=== PATIENT | female | born 1945 | race Caucasian/White ===

== ENCOUNTER 2017-06-06 09:40 | Day surgery (SDC) | payer MEDICARE, MEDICAID ==
[2017-06-05 16:59] VITALS: BMI 24.5
[2017-06-06] MEDS ORDERED: Fentanyl 100 MCG/2 ML VIAL ONE (11:37)
[2017-06-06] MEDS ORDERED: Midazolam HCl 2 mg/2 ml Vial ONE (11:37)
[2017-06-06] MEDS ORDERED: Bupivacaine/Epinephrine 0.25% 30 ML VIAL ONE (11:51)
[2017-06-06] MEDS ORDERED: Clindamycin/D5W 900 mg/50 ml Premix Bag ONE (12:45)
[2017-06-06] MEDS ORDERED: Levofloxacin 500 mg/D5W 100 ml Premix Bag ONE (12:45)
[2017-06-06] MEDS ORDERED: PHENYLEPHRINE-NS 100 MCG/ML 10 ML SYRINGE ONE (13:02)
[2017-06-06] MEDS ORDERED: Ondansetron HCl/PF 4 MG/2 ML Vial ONE (13:02)
[2017-06-06] MEDS ORDERED: diphenhydrAMINE HCl 50 MG/ML 1 ML VIAL ONE (13:02)
[2017-06-06] MEDS ORDERED: Propofol 200 MG/20 ML VIAL ONE (13:02)
[2017-06-06] MEDS ORDERED: Lidocaine 1% PF 5 ML VIAL ONE (13:02)
--- NOTE | 2017-06-06 16:12 | RAD ---
RADIOGRAPH CHEST 1 VIEW: Date: 06-06-17 Time: 2:17 p.m. HISTORY: 72-year-old female status post Mediport placement. COMPARISON: 04-18-17 FINDINGS: There is a new left subclavian vascular access port with distal tip overlying the SVC. No evidence o f pneumothorax. The previously demonstrated right upper lobe opacity has become smaller and more jerardo nt. Cardiomediastinal silhouette remains within normal limits. The rest of the visualized lung field s remain grossly clear. Lateral costophrenic angles remain sharp. IMPRESSION: 1. Interval placement of left subclavian implantable vascular access port without pneumothorax. 2. Significant interval decrease in size and density of right upper lobe pulmonary lesion. VIVIANA POS: [facility]
--- NOTE | 2017-06-08 17:14 | PDOC.OP ---
Operative Note - Operative Note Operative Note: PROCEDURE: Left subclavian MediPort placement with fluoroscopic guidance SURGEON: Eliseo Deluca M.D. DATE OF PROCEDURE: 06/06/2017 PREOPERATIVE DIAGNOSIS: Adenocarcinoma of the lung POSTOPERATIVE DIAGNOSIS: Adenocarcinoma of the lung HISTORY: Patient is diagnosed with bronchogenic carcinoma of the lung involving the right apex. Chemotherapy has been recommended and the oncologist has requested MediPort placement for this. Due to the radiation ngo placement of the port in the left chest was requested. OPERATIVE PROCEDURE IN DETAIL: After informed consent was obtained and appropriate preoperative antibiotics were administered, the patient was taken to the operating room and placed in supine position and monitored anesthesia care was administered. The patient was then placed in Trendelenburg position and the subclavian vein accessed easily on the first attempt with excellent flow of dark venous non-pulsatile blood. A wire threaded easily and was confirmed to be in the superior vena cava by fluoroscopy. Additional local anesthesia was infused to the skin and subcutaneous tissues lateral and inferior to the access site. The skin incision was extended from the wire laterally and a subcutaneous pocket developed inferiorly. A Mediport was obtained and confirmed to fit in the subcutaneous pocket. This was secured inferiorly to the pectoralis fascia with a Prolene suture, which was clamped, but not tied. The dilator and sheath were then placed over the wire and the dilator and wire removed leaving the sheath in place. The clamped MediPort tubing was tunneled through the sheath, which was then split and removed leaving the MediPort tubing in place. The tubing was adjusted until the tip was confirmed by fluoroscopy to be in the superior vena cava just above the atrium. The tubing was clamped at the skin level and cut and the tubing secured to the port, which was then placed in the subcutaneous pocket. The previously placed suture was secured and two additional sutures were placed to fix the port in place within the pocket. The port was aspirated with the Duran needle and had excellent flow of dark venous non-pulsatile blood and easily flushed without resistance. The subcutaneous tissues were closed with a running Monocryl suture, following which the skin was closed with a running subcuticular Monocryl suture. Dermabond dressings were placed and the hub was again accessed through the skin and confirmed to easily aspirate and easily flush. The course of the catheter was confirmed by fluoroscopy to be smooth with the tip appropriately located in the superior vena cava. The patient was taken her back to the day stay unit in good condition. Estimated blood loss was minimal. There were no complications. There were no specimens.
== END 2017-06-06 15:07 | disposition home or self-care (01) ==
LOC: SDC 09:40
PROVIDERS: ATTEND Surgery
PROC: 05H633Z Insertion of Infusion Device into Left Subclavian Vein, Percutaneous Approach (ICD-10-PCS; principal; 2017-06-06)
PROC: B517ZZA Fluoroscopy of Left Subclavian Vein, Guidance (ICD-10-PCS; 2017-06-06)
DX: C34.91 Malignant neoplasm of unspecified part of right bronchus or lung (principal); I10 Essential (primary) hypertension; F17.210 Nicotine dependence, cigarettes, uncomplicated; Z88.1 Allergy status to other antibiotic agents; Z88.0 Allergy status to penicillin; Z79.82 Long term (current) use of aspirin; Z79.899 Other long term (current) drug therapy; Z98.890 Other specified postprocedural states; Z98.891 History of uterine scar from previous surgery; Z83.3 Family history of diabetes mellitus; Z82.49 Family history of ischemic heart disease and other diseases of the circulatory system; Z80.0 Family history of malignant neoplasm of digestive organs
CPT/HCPCS: 36561; 71010; C1788; J1200; J1642; J1956; J2001; J2250; J2405; J2704; J3010; J3490

== ENCOUNTER 2017-06-18 18:42 | Inpatient (IN) | payer MEDICARE, MEDICAID ==
[2017-06-18] MEDS ORDERED: Ondansetron ODT 4 MG TAB ONE (19:01)
--- NOTE | 2017-06-18 20:03 | RAD ---
UPRIGHT PORTABLE CHEST ONE VIEW: History: 72-year-old female with weakness and nausea for several days. History of lung cancer. On chemotherap y. Comparison: 06-06-17 FINDINGS: Left subclavian catheter and injection port. Minimal somewhat poorly defined parenchymal density in the right upper lobe somewhat less prominent than on the 06-06-17 study. No confluent pneumonia, ove rt edema, or other acute intrathoracic disease. Heart size is normal. IMPRESSION: Minimal parenchymal process in the right upper lobe with some minimal associated volume loss, overal l less prominent in size than on the prior study. No confluent pneumonia, overt edema, or other acut e intrathoracic disease. POS: [facility]
[2017-06-18 20:38] LABS: Lactic Acid - Sepsis 1.9 mmol/L (0.5-2.2)
[2017-06-18 20:41] LABS: #Lymphocytes 0.1 thou/uL (1.20-3.40); #Neutrophils 0.9 thou/uL (1.40-6.50); %Eosinophils 0.6 % (0.0-10.0); %Lymphocytes 13.1 % (21.0-51.0); %Monocytes 1.1 % (0.0-10.0); Anisocytosis SLIGHT = 6-15 cells (100X) (0-5/hpf); Mean Platelet Volume 7.9 fL (7.4-10.4); Red Blood Cell (RBC) Count 3.18 mill/uL (4.20-5.40); White Blood Cell (WBC) Count 1.1 thou/uL (4.8-10.8)
[2017-06-18 20:44] LABS: ALT (SGPT) 22 U/L (8-55); AST (SGOT) 27 U/L (5-34); Alkaline Phosphatase 90 U/L (40-150); Anion Gap 19 mmol/L (10-20); BUN (Urea Nitrogen) 21 mg/dL (9.8-20.1); Bilirubin, Total 0.7 mg/dL (0.2-1.2); CK (CPK) 71 U/L (29-168); Calc. Creatinine Clearance 0 mL/min (70-130); Calcium 6.7 mg/dL (7.8-10.44); Carbon Dioxide 20 mmol/L (23-31); Chloride 103 mmol/L (98-107); Estimated GFR-MDRD 46; Globulin 2.8 g/dL (2.4-3.5); Lipase 31 U/L (8-78); Protein, Total 6.6 g/dL (6.0-8.3)
[2017-06-18 20:47] LABS: Troponin I Less than 0.010 ng/mL (< 0.028)
[2017-06-18 21:06] LABS: Bilirubin Small (Negative); Blood, Urine Negative (Negative); Glucose, Urine (Dipstick) Negative (Negative); Ketone, Urine Trace mg/dL (Negative); Nitrite Negative (Negative); Protein, Urine (Dipstick) 30 mg/dL (Neg-Trace)
[2017-06-18 21:08] LABS: Bacteria/HPF None Seen HPF (None Seen); Hyaline Casts/LPF 7-10 HYALINE CAST LPF (0-3 Hyaline)
[2017-06-18] MEDS ORDERED: Magnesium 2 GM/NS 0.9% 50 ML 2 GM in Premix Bag 1 BAG IVPB SCH (21:45)
[2017-06-19] MEDS ORDERED: Ondansetron HCl/PF 4 MG/2 ML Vial IVP PRN ×2 (01:22→07:08)
[2017-06-19] MEDS ORDERED: Ondansetron ODT 4 MG TAB SL PRN (01:22)
[2017-06-19 01:47] VITALS: BMI 24.0
[2017-06-19] MEDS: Sodium Chloride 0.9% 1,000 ML IV SCH ×5 (02:33→23:59)
[2017-06-19] MEDS ORDERED: HYDROcodone/Acetaminophen 5/325 mg Tablet PO PRN (07:08)
[2017-06-19] MEDS ORDERED: Acetaminophen 325 MG TAB PO PRN (07:08)
[2017-06-19] MEDS ORDERED: Mag-Al 1200 mg/1200 mg/30 ML UDCUP PO PRN (07:08)
[2017-06-19] MEDS ORDERED: Atorvastatin Calcium 40 MG TAB PO SCH (09:00)
[2017-06-19] MEDS: Famotidine/PF 20 mg/2ml Vial SLOW IVP SCH ×2 (09:46→20:29)
[2017-06-19] MEDS: ALPRAZolam 0.5 MG TAB PO SCH ×2 (09:46→20:31)
[2017-06-19] MEDS: Atorvastatin Calcium 40 MG TAB PO SCH (09:46)
[2017-06-19] MEDS: Bupropion 150 MG XL TAB PO SCH ×2 (09:46→20:31)
[2017-06-19] MEDS ORDERED: Vancomycin HCl 1 GM in Premix Bag 1 BAG IVPB SCH (11:00)
[2017-06-19] MEDS ORDERED: Magnesium Sulfate 4 GM, Admixture Fee 1 EACH in Sodium Chloride 0.9% 250 ML 250 ML IVPB SCH (13:45)
[2017-06-19] MEDS: metroNIDAZOLE 500 MG in Premix Bag 1 BAG IVPB SCH ×2 (14:04→21:15)
--- NOTE | 2017-06-19 14:23 | HP ---
PRIMARY CARE PHYSICIAN: Alon Cid D.O. REASON FOR ADMISSION: Sepsis, pancytopenia, gastroenteritis, dehydration. HISTORY OF PRESENT ILLNESS: A 72-year-old female who has underlying history of lung cancer. She is getting chemo and radiation therapy through [facility]. Patient reports that she had six cycles of chemotherapy this week and she is getting radiation therapy 5 times weekly for last 5 weeks. After last chemotherapy, patient was becoming more weak. She was having nausea, vomiting, and diarrhea. She was also having chills at home. She was becoming more and more weak. She denies any cough. She denies any chest pain, palpitations or urinary tract infection. She was not able to hold oral intake and that is why she decided to come to the emergency room for evaluation. The patient does report crampy abdominal discomfort. She recent any recent travel or sick exposure. She does report of nasal discharge, but she denies any cough or sore throat. Patient was evaluated in the emergency room and she found with urinary tract infection. The patient also had dehydration and abnormal electrolytes. Patient was very weak and that is why she was admitted to telemetry floor. REVIEW OF SYSTEMS: The following complete review of systems was negative, unless otherwise mentioned in the HPI or below: Constitutional: Weight loss or gain, ability to conduct usual activities. Skin: Rash, itching. Eyes: Double vision, pain. ENT/Mouth: Nose bleeding, neck stiffness, pain, tenderness. Cardiovascular: Palpitations, dyspnea on exertion, orthopnea. Respiratory: Shortness of breath, wheezing, cough, hemoptysis, fever or night sweats. Gastrointestinal: Poor appetite, abdominal pain, heartburn, nausea, vomiting, constipation, or diarrhea. Genitourinary: Urgency, frequency, dysuria, nocturia. Musculoskeletal: Pain, swelling. Neurologic/Psychiatric: Anxiety, depression. Allergy/Immunologic: Skin rash, bleeding tendency. Please see my HPI for pertinent positive and negative. All other review of systems reviewed and negative except as mentioned in the HPI. 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 PAST PSYCHIATRIC HISTORY: Anxiety and depression. PAST SURGICAL HISTORY: , D\T\C, excision of sebaceous cyst, MediPort placement. SOCIAL HISTORY: Patient lives with family, denies current tobacco, alcohol or drug abuse. ALLERGIES: The patient is allergic to HYDRALAZINE causing drug-induced lupus. The patient also developed generalized rash after ROCEPHIN. FAMILY HISTORY: Diabetes and heart disease runs among several family members. EMERGENCY ROOM COURSE: Patient is given 3 liters of IV fluid, Levaquin 750 mg, vancomycin 1 g, magnesium sulfate 2 grams and Zofran 4 mg. CURRENT HOME MEDICATIONS: Xanax 0.5 mg p.o. b.i.d., aspirin 81 mg p.o. daily, Lipitor 40 mg p.o. daily, Wellbutrin-XL 150 mg p.o. b.i.d., Lomotil q.i.d. p.r.n., lisinopril 10 mg p.o. daily, metoprolol 50 mg twice daily, Protonix 40 mg p.o. daily, Phenergan 12.5 mg q.4 hourly p.r.n., prochlorperazine 10 mg q.6 hourly p.r.n., tramadol 50 mg q.4 hourly p.r.n., Anoro Ellipta one inhalation daily, verapamil ER 120 mg p.o. b.i.d. PHYSICAL EXAMINATION: VITAL SIGNS: On arrival, blood pressure 121/79, pulse 98, respiratory rate 20, temperature 97.6, saturation 100% on room air, weight 59 kilograms. GENERAL: Patient is currently alert, awake, appears weak. No obvious acute distress. HEAD: Normocephalic, atraumatic. EYES: Pupils round, reactive to light. Extraocular muscles intact. ENT: Dry mucous membranes, no oral lesions, no pharyngeal erythema, no exudates. NECK: Supple. Range of motion is normal. No meningeal signs of irritation. LUNGS: Clear to auscultation without any obvious rhonchi or rales. CARDIAC: S1, S2 regular, tachycardia, no murmur, no gallop, no rub. ABDOMEN: Soft, bowel sounds present, nontender, nondistended. No organomegaly , no mass, no suprapubic tenderness. No peritoneal sign. BACK: On examination, no CVA tenderness. EXTREMITIES: Upper extremity passive movements of all joints are normal. Lower extremity, no edema. Good peripheral pulsation. SKIN: No skin rash. HEMATOLOGICAL SYSTEM: No lymphadenopathy. PSYCHIATRIC: Normal affect. IMAGING AND SIGNIFICANT LABORATORY DATA: 1. EKG showing normal sinus rhythm without any ischemic changes. Chest x-ray based on my review, minimal parenchymal process in the right upper lobe, no pneumonia. 2. CBC: WBC 1.1, hemoglobin 10.2, and platelet 116. 3. BMP: Sodium 138, potassium 4.2, chloride 103, carbon dioxide 20, BUN 21, creatinine 1.16, glucose 130, calcium 6.7, magnesium 1.0, lactic acid 1.9. 4. LFT: AST 27, ALT 22, alkaline phosphatase 90, albumin 3.8, lipase 31, CK 71 , CK-MB 0.7, troponin I less than 0.010. Urinalysis suggestive of UTI. ASSESSMENT AND PLAN: 1. Sepsis. This patient has underlying gastroenteritis and urinary tract infection. She is tachycardic and she has pancytopenia. The patient is already on broad broad-spectrum antibiotic therapy with Levaquin, Flagyl, and vancomycin. 2. Gastroenteritis, presumed infection. Patient is on Levaquin and Flagyl and we will send stool for infection workup to rule out any specific infectious etiology. We will send ova and parasite, Campylobacter antigen, culture and Clostridium difficile. 3. Urinary tract infection. We will send urine culture and patient is on Levaquin as well as vancomycin. We will follow up on culture result. 4. Dehydration. Patient is clinically dehydrated. The patient has received IV fluid in the emergency room. We will continue normal saline at 150 mL per hour and will repeat basic metabolic panel tomorrow. 5. Hypomagnesemia. The patient has received 2 grams magnesium in the emergency room. We will give her another dose of 4 gram magnesium and we will repeat magnesium tomorrow. 6. Sinus tachycardia likely due to underlying sepsis and volume depletion. 7. Hypocalcemia. Patient will be given calcium carbonate 1 gram p.o. b.i.d. and we will repeat basic metabolic panel tomorrow. 8. Pancytopenia, likely due to chemotherapy and underlying sepsis. We will monitor CBC. We will provide neutropenic precautions. 9. Dyslipidemia. We will continue Lipitor 40 mg p.o. at bedtime. 10. Anxiety and depression. We will continue bupropion 150 mg p.o. b.i.d., Xanax 0.5 mg p.o. b.i.d. 11. History of hypertension. We will start only 1 blood pressure medication with metoprolol 50 mg p.o. b.i.d. 12. Gastroesophageal reflux disease. We will continue Pepcid 20 mg IV b.i.d. 13. Lung cancer. We will consult Dr. Hughes for evaluation. The patient is getting radiation therapy, so we will defer that part of treatment plan to Oncology. 14. Deep venous thrombosis prophylaxis. We will avoid heparin products because of low platelet count. 15. Gastrointestinal prophylaxis. Patient is already on Pepcid therapy. 16. Code status: The patient is FULL CODE. The patient's daughter is surrogate decision maker. Disposition plan based on clinical course. We are expecting patient's stay in hospital more than 2 midnights. Plan of care discussed with the patient in detail. As this patient no longer needs any telemetry floor and that is why we will consider transferring her to medical floor. ERIKD
[2017-06-19] MEDS ORDERED: Vancomycin HCl 500 MG, Admixture Fee 1 EACH in Sodium Chloride 0.9% 100 ML IVPB SCH (15:00)
[2017-06-19] MEDS: Ondansetron ODT 4 MG TAB PO PRN (16:13)
--- NOTE | 2017-06-19 18:38 | CON ---
DATE OF CONSULTATION: 06/19/2017 REASON FOR CONSULTATION: Lung cancer. HISTORY OF PRESENT ILLNESS: Ms. Shell is a 72-year-old woman who was diagnosed with stage III B poorly differentiated adenocarcinoma of the lung. She is undergoing concurrent chemoradiation. Her chemotherapy consists of weekly carboplatin and Taxol. Her last treatment was 08/15/2016. She has been struggling with diarrhea and esophagitis as the esophagus in the radiation field. She presented to the emergency room yesterday with intractable nausea, vomiting, and diarrhea. She was found to be dehydrated. She was pancultured and preliminary results are all negative. She has received IV fluids in the last 24 hours and is feeling substantially better. She denies any chest pain or shortness of breath, mild abdominal pain in the lower umbilicus region. PAST MEDICAL HISTORY: 1. Lung cancer 2. Chronic alcoholism. 3. Hypertension. 4. Hyperlipidemia. 5. Arthritis. 6. Asthma. 7. Anxiety and depression. 8. Gastroesophageal reflux disease. 9. Chronic obstructive pulmonary disease. 10. History of cerebrovascular accident. 11. Kidney disease. PAST SURGICAL HISTORY: 1. x2. 2. Biopsy of the right lung nodule. FAMILY HISTORY: Mother had bone cancer. Father had colon cancer. SOCIAL HISTORY: , has 2 children, lives alone. She is a former alcohol use, discontinued in 09/2016, currently continues to smoke. REVIEW OF SYSTEMS: A 10 point review of systems is negative except for noted in HPI. PHYSICAL EXAMINATION: VITAL SIGNS: Temperature is 97.6, pulse is 106, respiratory rate 18, BP is 139/ 64. She is 100% on room air. GENERAL: Well-developed, well-nourished female, in no acute distress. HEENT: Normocephalic, atraumatic. Pupils are equal and reactive to light. NECK: Supple without JVD. CARDIOVASCULAR: Regular rate and rhythm. LUNGS: Clear. ABDOMEN: Soft, nontender, bowel sounds are positive. EXTREMITIES: No clubbing, cyanosis or edema. SKIN: No rash. HEMATOLOGIC: No petechia or purpura. NEUROLOGIC: The patient has a chronic tremor. PSYCHIATRIC: The patient is alert and oriented and appropriate. PERTINENT LABORATORY AND X-RAYS: Current WBCs are 1.1, hemoglobin 10.2, hematocrit 30, platelet count is 116,000. She has got 85% neutrophils, 13% lymphocytes. Sodium is 138, potassium 4.2, chloride 103, CO2 is 20, BUN is 21, creatinine 1.16. Lactic acid 1.9, calcium 6.7, magnesium 1, total bilirubin is 0.7, AST is 27, ALT is 22, alkaline phosphatase is 90. Creatinine kinase is 71. Troponins negative. Serum total protein 6.6, albumin 3.8, globulin 2.8. Urine is negative for bacteria. Chest x-ray showed a right upper lobe changes consistent with radiation. ASSESSMENT AND PLAN: 1. Stage III B lung cancer. 2. Pancytopenia secondary to #1. 3. Dehydration. 4. 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 PLAN: We will continue the intravenous fluids for now and add Ensure to her diet t.i.d. She is already on Pepcid, but continue empiric antibiotics; however , may be able to discontinue some as her cultures have been negative. We will continue to provide supportive care; and hopefully, she will be able to go home in the next 24 hours to resume radiation. She has 8 radiation treatments left with one chemotherapy. Thank you for the consult. We will follow her closely. ANDIE
[2017-06-19] MEDS: Metoprolol Tartrate 50 MG TAB PO SCH (20:31)
[2017-06-19] MEDS: Calcium Carbonate 500 MG ChewTAB PO SCH (20:32)
[2017-06-20] MEDS: metroNIDAZOLE 500 MG in Premix Bag 1 BAG IVPB SCH ×3 (05:06→21:30)
[2017-06-20 05:13] LABS: White Blood Cell (WBC) Count 0.6 thou/uL (4.8-10.8)
[2017-06-20 05:17] LABS: ALT (SGPT) 14 U/L (8-55); AST (SGOT) 17 U/L (5-34); Alkaline Phosphatase 68 U/L (40-150); Anion Gap 9 mmol/L (10-20); BUN (Urea Nitrogen) 8 mg/dL (9.8-20.1); Bilirubin, Total 0.5 mg/dL (0.2-1.2); Calc. Creatinine Clearance 63 mL/min (70-130); Calcium 6.7 mg/dL (7.8-10.44); Carbon Dioxide 19 mmol/L (23-31); Chloride 115 mmol/L (98-107); Estimated GFR-MDRD 73; Globulin 2.2 g/dL (2.4-3.5); Magnesium 1.9 mg/dL (1.6-2.6); Phosphorus 2.9 mg/dL (2.3-4.7)
[2017-06-20 05:47] LABS: Band 2 % (5-11); Hematocrit 21.7 % (36.0-47.0); Mean Platelet Volume 7.6 fL (7.4-10.4); Neutrophil 72 % (42-75); Nucleated RBC 1 % (0)
[2017-06-20] MEDS: Sodium Chloride 0.9% 1,000 ML IV SCH ×3 (07:44→21:31)
[2017-06-20] MEDS: ALPRAZolam 0.5 MG TAB PO SCH ×2 (08:26→20:29)
[2017-06-20] MEDS: Bupropion 150 MG XL TAB PO SCH ×2 (08:26→20:29)
[2017-06-20] MEDS: Atorvastatin Calcium 40 MG TAB PO SCH (08:26)
[2017-06-20] MEDS: Calcium Carbonate 500 MG ChewTAB PO SCH ×2 (08:27→20:30)
[2017-06-20] MEDS: Metoprolol Tartrate 50 MG TAB PO SCH ×2 (08:27→20:29)
[2017-06-20] MEDS: Ondansetron ODT 4 MG TAB PO PRN (09:57)
[2017-06-20] MEDS: Famotidine/PF 20 mg/2ml Vial SLOW IVP SCH ×2 (11:09→20:29)
[2017-06-20] MEDS: Loperamide HCl 2 MG CAP PO PRN ×2 (11:52→18:36)
--- NOTE | 2017-06-20 12:54 | PDOC.PN ---
- Subjective Encounter Start Date: 06/20/17 Encounter Start Time: 06:45 -: old records requested/rev Patient seen and examined. No new complaints. No overnight events, diarrhoea getting better, no fever - Objective Resuscitation Status: Resuscitation Status FULL:Full Resuscitation MAR Reviewed: Yes Vital Signs & Weight: Vital Signs (12 hours) Temp Pulse Pulse Resp BP BP Pulse Ox 06/20/17 11:35 98.5 F 85 16 130/84 100 06/20/17 11:01 97.9 F 80 16 132/80 06/20/17 08:17 97.4 F L 88 16 132/81 06/20/17 08:02 97.7 F 89 89 16 139/73 98 06/20/17 07:25 97.7 F 93 18 134/82 100 06/20/17 04:00 98.4 F 99 20 165/85 H 98 Weight Admit Weight 131 lb 4.8 oz Weight 130 lb 5 oz I&O: 06/19/17 06/20/17 06/21/17 06:59 06:59 06:59 Intake Total 3387 350 Output Total 2700 Balance 687 350 Result Diagrams: 06/20/17 04:37 06/20/17 04:37 Phys Exam - Physical Examination Constitutional: NAD HEENT: PERRLA, moist MMs, sclera anicteric Neck: no JVD, supple Respiratory: no wheezing, no rales, no rhonchi Cardiovascular: RRR, no significant murmur, no rub Gastrointestinal: soft, non-tender, no distention, positive bowel sounds Musculoskeletal: no edema, pulses present Neurological: non-focal, normal sensation, moves all 4 limbs Lymphatic: no nodes Psychiatric: normal affect, A&O x 3 Skin: no rash, normal turgor Dx/Plan (1) Pancytopenia due to chemotherapy Code(s): D61.810 - ANTINEOPLASTIC CHEMOTHERAPY INDUCED PANCYTOPENIA Status: Acute (2) Gastroenteritis Code(s): K52.9 - NONINFECTIVE GASTROENTERITIS AND COLITIS, UNSPECIFIED Status : Acute (3) Dehydration Code(s): E86.0 - DEHYDRATION Status: Acute (4) Dyslipidemia Code(s): E78.5 - HYPERLIPIDEMIA, UNSPECIFIED Status: Chronic (5) HTN (hypertension) Code(s): I10 - ESSENTIAL (PRIMARY) HYPERTENSION Status: Chronic (6) Tobacco abuse Code(s): Z72.0 - TOBACCO USE Status: Chronic (7) Hypomagnesemia Code(s): E83.42 - HYPOMAGNESEMIA Status: Resolved (8) Hypocalcemia Code(s): E83.51 - HYPOCALCEMIA Status: Acute (9) Lung cancer Code(s): C34.90 - MALIGNANT NEOPLASM OF UNSP PART OF UNSP BRONCHUS OR LUNG Status: Chronic - Plan cont current plan of care, continue antibiotics * continue IVF * continue empiric levaquin, flagyl and vancomycin * follow up on culture * monitor CBC * 1 unit PRBC given today * medication reviewed as below * symptomatic treatment. * stool for infection is negative Review of Systems - Review of Systems Constitutional: negative: Fever, Chills, Sweats, Weakness, Malaise, Other ENT: negative: Ear Pain, Ear Discharge, Nose Pain, Nose Discharge, Nose Congestion, Mouth Pain, Mouth Swelling, Throat Pain, Throat Swelling, Other Respiratory: negative: Cough, Dry, Shortness of Breath, Hemoptysis, SOB with Excertion, Pleuritic Pain, Sputum, Wheezing Cardiovascular: negative: Chest Pain, Palpitations, Orthopnea, Paroxysmal Noc. Dyspnea, Edema, Light Headedness, Other Gastrointestinal: Diarrhea. negative: Nausea, Vomiting, Abdominal Pain, Constipation, Melena, Hematochezia, Other Genitourinary: negative: Dysuria, Frequency, Incontinence, Hematuria, Retention , Other Musculoskeletal: negative: Neck Pain, Shoulder Pain, Arm Pain, Back Pain, Hand Pain, Leg Pain, Foot Pain, Other Skin: negative: Rash, Lesions, Reynaldo, Bruising, Other - Medications/Allergies Allergies/Adverse Reactions: Allergies Allergy/AdvReac Type Severity Reaction Status Date / Time ceftriaxone [From Rocephin] Allergy Verified 06/05/17 17:01 hydralazine Allergy Verified 06/05/17 17:01 Medications: Current Medications Acetaminophen (Tylenol) 650 mg PO Q4H PRN PRN Reason: Headache/Fever or Pain Last Admin: 06/20/17 09:57 Dose: 650 mg Hydrocodone Bitart/Acetaminophen ([place] 5/325) 1 tab PO Q4H PRN PRN Reason: Moderate Pain (4-6) Al Hydroxide/Mg Hydroxide (Maalox) 30 ml PO Q6H PRN PRN Reason: Heartburn or Indigestion Alprazolam (Xanax) 0.5 mg PO BID [facility] Last Admin: 06/20/17 08:26 Dose: 0.5 mg Aspirin (Aspirin Chewable) 81 mg PO DAILY [facility] Last Admin: 06/20/17 08:26 Dose: 81 mg Atorvastatin Calcium (Lipitor) 40 mg PO DAILY [facility] Last Admin: 06/20/17 08:26 Dose: 40 mg Bupropion HCl (Wellbutrin Xl) 150 mg PO BID [facility] Last Admin: 06/20/17 08:26 Dose: 150 mg Calcium Carbonate (Tums) 1,000 mg PO BID [facility] Last Admin: 06/20/17 08:27 Dose: 1,000 mg Famotidine (Pepcid) 20 mg SLOW IVP Q12HR [facility] Last Admin: 06/20/17 11:09 Dose: 20 mg Levofloxacin 500 mg/ Device 100 mls @ 100 mls/hr IVPB Q24HR [facility] Last Admin: 06/20/17 11:09 Dose: 100 mls Sodium Chloride (Normal Saline 0.9%) 1,000 mls @ 150 mls/hr IV .Q6H40M [facility] Last Admin: 06/20/17 07:44 Dose: 1,000 mls Metronidazole 500 mg/ Device 100 mls @ 100 mls/hr IVPB Q8HR [facility] Last Admin: 06/20/17 05:06 Dose: 100 mls Vancomycin HCl 750 mg/ Sodium (Chloride) 250 mls @ 250 mls/hr IVPB 1500 [facility] Loperamide HCl (Imodium) 2 mg PO QIDPRN PRN PRN Reason: Diarrhea/Loose Stools Last Admin: 06/20/17 11:52 Dose: 2 mg Metoprolol Tartrate (Lopressor) 50 mg PO BID [facility] Last Admin: 06/20/17 08:27 Dose: 50 mg Miscellaneous Medication (Pharmacy To Dose) 1 each IVPB ASDIR [facility] Ondansetron HCl (Zofran Odt) 4 mg PO Q6H PRN PRN Reason: Nausea/Vomiting Last Admin: 06/20/17 09:57 Dose: 4 mg Ondansetron HCl (Zofran) 4 mg IVP Q6H PRN PRN Reason: Nausea/Vomiting Sodium Chloride (Flush - Normal Saline) 10 ml IVF Q12HR [facility] Last Admin: 06/20/17 11:10 Dose: 10 ml Sodium Chloride (Flush - Normal Saline) 10 ml IVF PRN PRN PRN Reason: Saline Flush
[2017-06-20] MEDS: Vancomycin HCl 750 MG in Sodium Chloride 0.9% 250 ML 250 ML IVPB SCH (16:18)
[2017-06-21] MEDS: Loperamide HCl 2 MG CAP PO PRN (06:10)
[2017-06-21] MEDS: Sodium Chloride 0.9% 1,000 ML IV SCH ×2 (06:10→13:47)
[2017-06-21] MEDS: metroNIDAZOLE 500 MG in Premix Bag 1 BAG IVPB SCH ×2 (06:11→13:47)
[2017-06-21] MEDS: ALPRAZolam 0.5 MG TAB PO SCH (08:31)
[2017-06-21] MEDS: Atorvastatin Calcium 40 MG TAB PO SCH (08:31)
[2017-06-21] MEDS: Metoprolol Tartrate 50 MG TAB PO SCH (08:31)
[2017-06-21] MEDS: Bupropion 150 MG XL TAB PO SCH (08:31)
[2017-06-21] MEDS: Calcium Carbonate 500 MG ChewTAB PO SCH (08:31)
[2017-06-21] MEDS: Famotidine/PF 20 mg/2ml Vial SLOW IVP SCH (08:32)
[2017-06-21 09:00] LABS: Hematocrit 27.6 % (36.0-47.0); Mean Platelet Volume 7.6 fL (7.4-10.4); Red Blood Cell (RBC) Count 2.97 mill/uL (4.20-5.40); White Blood Cell (WBC) Count 0.7 thou/uL (4.8-10.8)
[2017-06-21 10:21] LABS: #Lymphocytes 0.2 thou/uL (1.20-3.40); #Neutrophils 0.5 thou/uL (1.40-6.50); %Lymphocytes 23.7 % (21.0-51.0); %Monocytes 4.6 % (0.0-10.0); Band 5 % (5-11); Neutrophil 50 % (42-75)
[2017-06-21 11:54] VITALS: BP 138/72; TEMP 98.1
[2017-06-21] MEDS: Ondansetron ODT 4 MG TAB PO PRN (13:08)
--- NOTE | 2017-06-21 14:24 | PDOC.PN ---
- Subjective Encounter Start Date: 06/21/17 Encounter Start Time: 14:22 Patient seen at bedside, no overnight events, no new complaints. - Objective Resuscitation Status: Resuscitation Status FULL:Full Resuscitation Vital Signs & Weight: Vital Signs (12 hours) Temp Pulse Resp BP BP Pulse Ox 06/21/17 11:25 98.1 F 88 20 138/72 100 06/21/17 07:25 97.6 F 76 18 176/83 H 100 06/21/17 03:59 98.3 F 84 16 144/89 H 99 Weight Admit Weight 131 lb 4.8 oz Weight 130 lb 5 oz I&O: 06/20/17 06/21/17 06/22/17 06:59 06:59 06:59 Intake Total 3387 2400 Output Total 2700 Balance 687 2400 Result Diagrams: 06/21/17 08:40 06/20/17 04:37 Phys Exam - Physical Examination Constitutional: NAD HEENT: moist MMs Neck: no JVD Respiratory: no wheezing, clear to auscultation bilateral Cardiovascular: RRR Gastrointestinal: soft Musculoskeletal: pulses present Neurological: moves all 4 limbs Psychiatric: A&O x 3 Deviation from normal: Radiation meier on chest Dx/Plan (1) Dehydration Code(s): E86.0 - DEHYDRATION Status: Resolved (2) Gastroenteritis Code(s): K52.9 - NONINFECTIVE GASTROENTERITIS AND COLITIS, UNSPECIFIED Status : Suspected (3) Pancytopenia due to chemotherapy Code(s): D61.810 - ANTINEOPLASTIC CHEMOTHERAPY INDUCED PANCYTOPENIA Status: Chronic (4) HTN (hypertension) Code(s): I10 - ESSENTIAL (PRIMARY) HYPERTENSION Status: Chronic - Plan cont current plan of care, out of bed/ambulate, DVT proph w/SCDs * Blood cultures and stool studies are negative. D/C Antibiotics * D/C Home * F/U with Dr. Hughes on 06/26/17 /
--- NOTE | 2017-06-21 15:34 | DIS ---
DATE OF ADMISISON: 06/19/2017 DATE OF DISCHARGE: 06/21/2017 DISCHARGE DISPOSITION: Home. DISCHARGE FOLLOWUP: 1. With Dr. Hughes on 06/26/2017. 2. With PCP as an outpatient. 3. With Radiation Oncology as previously scheduled. DISCHARGE DIAGNOSES: 1. Pancytopenia secondary to chemotherapy treatments. 2. Gastroenteritis, suspected viral versus radiation or chemo induced enteritis. 3. Clinical dehydration. 4. Dyslipidemia. 5. Hypertension. 6. Stage 3B poorly differentiated adenocarcinoma of the lung, currently undergoing chemotherapy as well as radiation. 7. Asthma. DISCHARGE MEDICATIONS: 1. Xanax 0.5 mg p.o. b.i.d. 2. Aspirin 81 mg p.o. daily. 3. Lipitor 40 mg p.o. daily. 4. Bupropion 150 mg p.o. b.i.d. 5. Lisinopril 10 mg p.o. daily. 6. Metoprolol 50 mg p.o. b.i.d. 7. Protonix 40 mg p.o. daily. 8. Promethazine 12.5 mg p.o. q.4 hours p.r.n. 9. Tramadol 50 mg p.o. q.4 hours p.r.n. 10. Ellipta. 11. Verapamil extended release 120 mg p.o. b.i.d. INPATIENT CONSULTATIONS: Hannah Briscoe APRN and Dr. Hughes for Oncology. INPATIENT PROCEDURES: None. INPATIENT RADIOGRAPHIC EXAMINATIONS: Chest x-ray, which revealed minimal parenchymal process in the right upper lobe with some minimal associated volume loss, no confluent pneumonia, overt edema or a cute intrathoracic disease was noted. BRIEF HOSPITAL COURSE: Ms. Shell is a 72-year-old woman with a history of stage IIIB poorly diffe rentiated adenocarcinoma of the lung, currently undergoing chemoradiation, who presented to the [facility] with intractable nausea, vomiting, diarrhea. She was found to be clinically dehydrated. In addition, she was found to be neutropenic; however, remained afebrile. She was then subsequentl y admitted to the oncology floor where she was placed prophylactically placed on broad spectrum anti biotics with vancomycin as well as levofloxacin and Flagyl. She was given IV hydration as well as a ntidiarrheals and antiemetics. Clinically, she improved. Her weakness improved and she is feeling much better. She is ambulating and having adequate p.o. intake. Her blood cultures as well as stoo l studies have been negative. Her antibiotics have been discontinued. She still remains neutropeni c; however, has not had any fevers in the last 24 hours. She was evaluated by Oncology stated she i s clinically appropriate for discharge and will follow up in the office on 06/26/2017. She is to co ntinue with radiation therapy as previously scheduled. She is clinically appropriate for discharge home. We will discharge home later today in stable condition. DISCHARGE DIET: Neutropenic. ACTIVITY: As tolerated. RESTRICTIONS: None. ALLERGIES: CEFTRIAXONE, HYDRALAZINE. CODE STATUS: FULL CODE. DISCHARGE FOLLOWUP: 1. With Dr. Hughes on 06/26/2017. 2. With PCP as an outpatient. 3. With Radiation Oncology as previously scheduled. I have explained all this to the patient at bedside. She is agreeable to the plan of discharge. Al rose questions have been answered. Time required to prepare for discharge 33 minutes.
[2017-06-21] MEDS: Vancomycin HCl 750 MG in Sodium Chloride 0.9% 250 ML 250 ML IVPB SCH (16:00)
--- NOTE | 2017-06-24 16:01 | EKG ---
Test Reason : Blood Pressure : / mmHG Vent. Rate : 097 BPM Atrial Rate : 097 BPM P-R Int : 130 ms QRS Dur : 078 ms QT Int : 358 ms P-R-T Axes : 069 047 057 degrees QTc Int : 454 ms Normal sinus rhythm Nonspecific ST abnormality Abnormal ECG Confirmed by MENA OCONNOR, SÁNCHEZ Mallory ([id number]), film and video editor CRISTINA WILEY ([id number]) on 06/24/2017 4:00:54 PM Referred By: Confirmed By:SÁNCHEZ SAN MD
== END 2017-06-21 16:05 | disposition home or self-care (01) | DRG 871 ==
LOC: ERS 18:42 → 2NO 06-19 00:15 → ONC 06-19 18:28
PROVIDERS: ADMIT Internal Medicine; ATTEND Internal Medicine
PROC: 30233N1 Transfusion of Nonautologous Red Blood Cells into Peripheral Vein, Percutaneous Approach (ICD-10-PCS; principal; 2017-06-20)
DX: A41.9 Sepsis, unspecified organism (principal); D61.810 Antineoplastic chemotherapy induced pancytopenia; C34.90 Malignant neoplasm of unspecified part of unspecified bronchus or lung; N39.0 Urinary tract infection, site not specified; E83.42 Hypomagnesemia; E83.51 Hypocalcemia; R13.10 Dysphagia, unspecified; T66.XXXA Radiation sickness, unspecified, initial encounter; E86.0 Dehydration; I10 Essential (primary) hypertension; F32.9 Major depressive disorder, single episode, unspecified; Z92.3 Personal history of irradiation; Z92.21 Personal history of antineoplastic chemotherapy; E78.5 Hyperlipidemia, unspecified; F10.21 Alcohol dependence, in remission; F41.9 Anxiety disorder, unspecified; K21.9 Gastro-esophageal reflux disease without esophagitis; K52.89 Other specified noninfective gastroenteritis and colitis; J45.909 Unspecified asthma, uncomplicated; Z88.1 Allergy status to other antibiotic agents; F17.210 Nicotine dependence, cigarettes, uncomplicated
CPT/HCPCS: 36430; 51701; 71010; 77014; 77336; 77386; 80053; 81003; 81015; 82553; 83605; 83690; 83735; 84100; 84484; 85025; 86850; 86900; 86901; 87015; 87040; 87045; 87046; 87086; 87324; 87328; 87329; 87449; 87899; 93005; 96361; 96365; 96367; A4216; A4353; G8996-GN-CJ; G8997-GN-CI; J1642; J1956; J2405; J3370; J3475; J7050; P9016; Q0162; S0028

== ENCOUNTER 2017-08-17 09:31 | Outpatient (CLI) | payer MEDICARE, MEDICAID ==
--- NOTE | 2017-08-17 10:37 | CT ---
CT CHEST WITH CONTRAST: HISTORY: Right upper lobe lung cancer status post chemo. Re-staging. COMPARISON: CT from 04/05/2017. FINDINGS: The right upper lobe malignancy has decreased in size, now measuring 2.2 x 1.1 x 2.4 cm, previously 3 .5 x 2.2 x 2.3 cm. There are multiple new areas of peripheral ground glass, which may represent hemo rrhage and post treatment changes of the right upper lobe, as well as along the right major fissure a nd right lower lobe. There is increased size of the left upper lobe ground glass nodule with a devel oping solid component (series 3, image 9). There is a similar appearance to the ground glass opacity in the superior lingula (series 3, image 18). The ground glass opacity with the developing solid co mponent is increasing on series 3, image 23, in the superior segment of the left lower lobe. The rahul und glass opacity within the left lung base (series 3, image 23) is similar. There is a small granul malathi in the right lower lobe. The paratracheal hilar adenopathy is decreasing in size. For example, a right paratracheal lymph nod e indexed lesion of series 2, image 19 measures 6 mm, enlarged, previously 11 mm. No pericardial effusion. Aortic size is nonaneurysmal. The supraclavicular lymph nodes have decreas ed in size. There is extensive scarring in the kidneys with multiple hypodensities, incompletely evaluated. IMPRESSION: 1. Interval size decrease of the right upper lobe dominant mass, measuring 3.2 x 1.2 x 2.4 cm, previ ously 3.5 x 2.2 x 2.3 cm. 2. Post treatment change, right upper lobe. 3. Interval increase in size and solid component of the left upper lobe ground glass nodule, now deepika suring 1.6 cm, with a 3 mm solid component, concerning for malignancy. There is also increased solid component in size of a superior segment left lower lobe nodule, also concerning for malignancy such as adenocarcinoma. POS: [facility]
== END 2017-08-17 09:32 | disposition home or self-care (01) ==
LOC: CT 09:31
PROVIDERS: ATTEND Radiology Radiation Oncology
DX: C34.11 Malignant neoplasm of upper lobe, right bronchus or lung (principal); R91.1 Solitary pulmonary nodule
CPT/HCPCS: 71260

== ENCOUNTER 2017-11-14 08:59 | Outpatient (CLI) | payer MEDICARE, MEDICAID ==
--- NOTE | 2017-11-14 13:52 | CT ---
CHEST CT WITH CONTRAST: COMPARISON: 08/17/17. HISTORY: Right upper lobe cancer. Status post chemotherapy. Examination is requested for restaging. The pat ient has undergone chemotherapy and radiation therapy treatment. The patient is experiencing shortne ss of breath. TECHNIQUE: Postcontrast chest CT is performed in the axial plane. Coronal reformatted images are submitted for interpretation. FINDINGS: There is a filling defect involving the left jugular vein suggesting left jugular vein thrombosis whi ch has developed since the previous examination. No mediastinal hematoma. There is an enlarged subcarinal lymph node measuring 1.7 x 1.3 cm. The lym ph node has developed since the previous examination. Heart size is within normal limits. No perica rdial fluid. The visualized aorta has a normal caliber. No periaortic fat stranding. Atheroscleros is of the arch and descending thoracic aorta are identified. Upper solid organs are grossly unremarkable. No acute abnormality. Remote insult to the left kidney where areas of cortical thinning and scarring are noted. Bilateral renal cysts are suspected. A sm all amount of nonspecific pericholecystic fluid. Liver and spleen and pancreas are grossly unremarka ble. There is a hypodensity posterior to the mid thoracic esophagus, measuring 0.8 cm. A small necrotic p araesophageal lymph node is favored which has developed since the prior exam. Interval development of a small right-sided pleural effusion. Progression of opacification of the ri ght upper lobe. There is a well-circumscribed hypodensity along the lateral aspect of the right uppe r lobe measuring 1.1 cm which may represent a focal area of lung parenchymal necrosis, secondary to t reatment. Additional areas of necrosis may be present in the right upper lobe, near the apex. Multi focal areas of parenchymal opacification with small amounts of air bronchogram are noted. Post-treat ment/progression of tumor favored. The central aspect of these multifocal areas measures 1.5 x 1.5 c m and was not present on the prior exam. More focal area of opacification along the posterior aspect of the right upper lobe measures 1.8 x 5.5 cm. Trachea and central bronchi are patent. Mild right hilar fullness. Nonspecific ground-glass opacity in the superior segment of the left lower lobe, deepika suring 0.8 cm (previously measuring 0.8 cm. No pneumothorax. Stable scarring in the left lower lobe. No lytic or blastic lesions in the osseous structures. IMPRESSION: 1. Interval development of a mediastinal lymph node as detailed above. 2. Worsening opacification of the right upper lobe which may, in part, reflect posttreatment change. Progression of malignancy cannot be excluded. POS: [facility]
[2017-11-14] MEDS ORDERED: Iopamidol 370 76% 100 ML VIAL ONE (15:10)
== END 2017-11-14 09:00 | disposition home or self-care (01) ==
LOC: CT 08:59
PROVIDERS: ATTEND Internal Medicine Hematology & Oncology
DX: C34.11 Malignant neoplasm of upper lobe, right bronchus or lung (principal); R91.8 Other nonspecific abnormal finding of lung field
CPT/HCPCS: 71260; 82565

== ENCOUNTER 2017-12-06 13:36 | Inpatient (IN) | payer MEDICARE, MEDICAID ==
[2017-12-06 16:30] LABS: #Lymphocytes 0.8 thou/uL (1.20-3.40); #Monocytes 0.7 thou/uL (0.11-0.59); #Neutrophils 4.1 thou/uL (1.40-6.50); %Basophils 0.1 % (0.0-1.0); %Eosinophils 0.3 % (0.0-10.0); %Monocytes 12.2 % (0.0-10.0); %Neutrophils 72.4 % (42.0-75.0); Hemoglobin 10.3 g/dL (12.0-16.0); Mean Corpuscular HGB CONC 33.6 g/dL (32.0-36.0); Mean Corpuscular Hemoglobin 30.9 pg (27.0-31.0); Mean Corpuscular Volume 91.8 fl (81.0-99.0); Mean Platelet Volume 6.9 fL (7.4-10.4); Platelet Count 285 thou/uL (130-400); RBC Distribution Width 14.4 % (11.5-14.5); Red Blood Cell (RBC) Count 3.32 mill/uL (4.20-5.40); White Blood Cell (WBC) Count 5.6 thou/uL (4.8-10.8)
[2017-12-06] MEDS ORDERED: Morphine 4 MG/ML VIAL ONE ×2 (16:38→17:21)
[2017-12-06 17:02] LABS: CKMB 1.6 ng/mL (0-6.6); Troponin I Less than 0.010 ng/mL (< 0.028)
[2017-12-06 17:07] LABS: INR-International Normal Ratio 1.4; PTT 36.3 SEC (22.9-36.1); Prothrombin Time 17.4 SEC (12.0-14.7)
[2017-12-06 17:12] LABS: ALT (SGPT) 10 U/L (8-55); AST (SGOT) 16 U/L (5-34); Albumin 3.7 g/dL (3.4-4.8); Alkaline Phosphatase 89 U/L (40-150); Anion Gap 12 mmol/L (10-20); BUN (Urea Nitrogen) 14 mg/dL (9.8-20.1); Bilirubin, Total 0.4 mg/dL (0.2-1.2); Calc. Creatinine Clearance 0 mL/min (70-130); Calcium 9.9 mg/dL (7.8-10.44); Carbon Dioxide 23 mmol/L (23-31); Chloride 107 mmol/L (98-107); Estimated GFR-MDRD 76; Globulin 3.1 g/dL (2.4-3.5); Glucose 100 mg/dL (80-115); Lipase 11 U/L (8-78); Potassium 3.3 mmol/L (3.5-5.1); Protein, Total 6.8 g/dL (6.0-8.3); Sodium 139 mmol/L (136-145)
[2017-12-06] MEDS ORDERED: Acetaminophen 325 MG TAB PO PRN (18:21)
[2017-12-06] MEDS ORDERED: Sodium Chloride 0.9% 500 ML IV SCH (18:30)
[2017-12-06 18:32] LABS: Troponin I Less than 0.010 ng/mL (< 0.028)
--- NOTE | 2017-12-06 18:40 | ULT ---
ULTRASOUND WITH DOPPLER DUPLEX VENOUS LEFT UPPER EXTREMITY: 12/06/17 HISTORY: 72-year-old female with left upper extremity pain around chemotherapy catheter port site. Dr. Louie reported the left internal jugular vein thrombosis seen on Doppler ultrasound, and the lesion suspicious for small hemorrhagic brain metastasis on the CT, by telephone to Dr. Mendoza at 4:21 p. m. on 12/06/17. TECHNIQUE: Amato scale, color doppler, and spectral analysis, of major veins of left upper extremity. Compression applied to all veins except the left subclavian. FINDINGS: There is thrombus that completely fills the lumen of the left internal jugular vein. There is signifi cant diminished blood flow in the left internal jugular vein. Small trickles of blood flow are demons trated in the left internal jugular vein peripherally around the clot. There is no evidence of thrombosis involving the left subclavian, axillary, cephalic, basilic, brachi al, radial, or ulnar, veins. IMPRESSION: Positive for (acute or subacute) thrombosis of the left internal jugular vein, causing almost total o cclusion. POS: [facility]
[2017-12-06 18:59] VITALS: BMI 21.9
[2017-12-06] MEDS ORDERED: Potassium Chloride 20 MEQ TAB PO SCH (19:00)
[2017-12-06] MEDS: Potassium Chloride 20 MEQ TAB PO SCH (20:39)
[2017-12-06] MEDS: Famotidine 20 MG TAB PO SCH (20:40)
[2017-12-06] MEDS: levETIRAcetam 500 MG TAB PO SCH (20:40)
[2017-12-06] MEDS: Metoprolol Tartrate 50 MG TAB PO SCH (20:40)
[2017-12-06] MEDS: Dexamethasone 4 mg/ml Vial SLOW IVP SCH (20:41)
[2017-12-06 20:54] LABS: Troponin I Less than 0.010 ng/mL (< 0.028)
[2017-12-06] MEDS ORDERED: Heparin 5,000 UNITS/ML VIAL SC SCH (21:00)
[2017-12-06] MEDS ORDERED: Verapamil SR 120 MG TAB PO SCH (21:00)
[2017-12-06] MEDS ORDERED: Morphine 4 MG/ML VIAL SLOW IVP PRN (21:28)
--- NOTE | 2017-12-06 21:29 | PDOC.EVN ---
Event Note - Event Note Event Note: RN called - Will hold Heparin for possible hemorrhagic metastasis.
[2017-12-06] MEDS: Sodium Chloride 0.9% 1,000 ML IV SCH (21:31)
--- NOTE | 2017-12-06 21:31 | RAD ---
PORTABLE AP CHEST RADIOGRAPH: Date: 12-06-17 History: Right upper lung cancer. Patient now has chest pain and weakness. Comparison: 11-14-17 FINDINGS: There is a mass like density in the right paratracheal location with additional airspace opacities wi thin the right upper lobe which is likely related to patient's known lung cancer. There is volume los s in the right hemithorax with elevation of the right hemidiaphragm and this generalized volume loss and elevation of right hemidiaphragm does represent interval change compared to study on 11-14-17. Lef t subclavian Mediport remains in place. The left lung is clear. The cardiac silhouette and pulmonary vasculature are within normal limits. Vascular calcification in the thoracic aorta. IMPRESSION: 1. Mass like opacity right upper lobe with adjacent parenchymal changes. This is likely related to shadi cid's known right upper lobe malignancy. 2. Volume loss right hemithorax with elevation of right hemidiaphragm. 3. Left lung is clear. POS: [facility]
--- NOTE | 2017-12-06 21:42 | CT ---
CT BRAIN NONCONTRAST: DATE: 12-06-17 HISTORY: 72-year-old female with right upper lobe non-small cell lung cancer, who has recently developed alter ed mental status, confusion, nausea, and drowsiness. COMPARISON: The noncontrast brain CT portion of the CT angiogram of 03-15-17 and MRI of 03-14-17. FINDINGS: There is a new small 0.9 x 0.5 cm intraaxial hyperdensity at the left parasagittal cerebrum near the vertex, surrounded by a small halo of vasogenic edema. Previously, there was a then acute/subacute infarction involving the left temporal lobe operculum and adjacent left suprasylvian frontal lobe. This has evolved into a moderate sized region of encephalom alacia and gliosis now (also with involvement of a small portion of the left insula). The degree of m ild to moderate ventriculomegaly involving the third ventricles, has not changed. Again noted is the small old lacunar infarction in the left cerebellar hemisphere. There are mild chronic ischemic white matter changes. No destructive osseous calvarial lesion is identified. No extraaxial fluid collectio n, mass effect, or midline shift. IMPRESSION: 1. New small 0.9 cm dense intraaxial lesion at left parasagittal convexity. Given the history of lung cancer, this is suspicious for a small hemorrhagic brain metastasis. 2. Moderate sized old infarction in the left middle cerebral artery territory. 2. Small old lacunar infarction in the left superior cerebellar artery territory. 4. An MRI Of the brain with and without contrast would be useful to search for additional small brain metastases. VIVIANA Lua POS: [facility]
[2017-12-06] MEDS: ALPRAZolam 0.5 MG TAB PO SCH (21:50)
--- NOTE | 2017-12-06 23:47 | CON ---
DATE OF CONSULTATION: 12/06/2017 Kei Kong PA-C dictating for David Moctezuma MD This is a 30-minute initial patient evaluation, of which greater than 50% of the exam was spent in co unseling and coordinating patient's care. Remainder of the exam was spent in review of patient's med [facility] records and appropriate imaging studies. CHIEF COMPLAINT: Altered mental status with headache, status post lung cancer diagnosis. HISTORY OF PRESENT ILLNESS: Ms. Shell is a pleasant 72-year-old female, who presents to [facility] for the above complaints. Apparently, the patient's daughter has noticed that she wa s having some altered mental status and headache over the past several days. She, over the last 9 mo nths, was diagnosed with lung cancer and was a decade-long smoker. The patient states roughly 9 magui hs ago, she stopped smoking when she was diagnosed with a lung cancer. It was also noted that in her left internal jugular vein blood clot and she was placed on Xarelto for this. She has been seeing [facility] for chemotherapy and radiation therapy. CT of the brain shows a hemorrhagic lesion. Neur osurgery is asked to consult regarding this. On physical exam, the patient is awake, alert, and appr opriate. Her GCS currently is 15, although she does appear to have a little bit of aphasia. She fol lows commands equally in all 4 extremities and had good strength throughout. Pupils are equal, round , and reactive bilaterally. She has no worrisome myelopathic features on exam including negative Hof fman's bilaterally and no increased tone. She has no pronator drift. IMPRESSION: 1. Altered mental status with headache. 2. On Xarelto for left IJ blood clot. 3. History of lung cancer, currently undergoing radiation and chemotherapy. PLAN: I discussed the patient's case and imaging with Dr. Moctezuma. At this time, there is no role fo r neurosurgical intervention. The patient should undergo an MRI of the brain with and without contra st to evaluate the hemorrhagic lesion for possible brain cancer metastasis. Should this be the case, then the patient would be a good candidate for radiosurgery given the size and location of the lesio n. Certainly, the patient and her family are pleased with this news and we will follow up once her [facility] has been completed. Please call with any questions or changes in patient's neurologic statu s. Otherwise, we will continue to monitor the patient.
--- NOTE | 2017-12-06 23:55 | HP ---
PRIMARY CARE PHYSICIAN: Alon Cid D.O. CHIEF COMPLAINT: Confusion. HISTORY OF PRESENT ILLNESS: The patient is a very pleasant 72-year-old female who presents to the [facility] with admission for acute confusion. The patient's family is at the bedside stated that the shadi cid has a history of lung cancer, which she was diagnosed last year. This is after watching over a lung nodule, which became cancerous. The patient had chemotherapy and radiation last year. The glen ryder's last chemotherapy was in June, and 6 weeks later in July, she did have a scan. The shadi cid is aware of the scan result in August, which indicated that she still had residual disease. H owever, the patient interpreted this as remission. Upon the patient's family following up with the vasiliy nikki to the oncologist, was found that the patient did have some metastatic disease also. It was n oted that the patient also had a scan that indicated left internal jugular clots for which she was pu t on Xarelto a week and a half ago. The patient also did see Pulmonology for a right lung pleural ef fusion. However, no interventions was done. The patient's cancer was on the right lung. The adela t stated for the past couple of days she has been having this left-sided head pain, has been sleeping a lot, has been very confused, does not remember things. She denies any chest pain, nausea, vomitin g, or diarrhea, has not been eating very much either. In the ER, the patient did undergo a CT head, which indicated a left-sided small most likely a metast atic mass with possible hemorrhagic lesion. At this time, Neurosurgery was consulted. The ER physic renaldo spoke with Neurosurgery who recommended the patient to be admitted to the hospital. The patient also had a vascular ultrasound which was done; however, I was unable to interpret it, which the ER ph ysician notified me that it just indicated that she had clots on the left internal jugular. PAST MEDICAL HISTORY: History of alcohol abuse in the past, hypertension, dyslipidemia, anxiety, dep ression, GERD, chronic obstructive pulmonary disease, GI bleed, lung nodule, and drug-induced lupus. PAST SURGICAL HISTORY: Significant for sebaceous cyst and section. PAST PSYCHIATRIC HISTORY: History of depression. SOCIAL HISTORY: The patient quit alcohol use in 09/2016. She currently is nonsmoker; however, has a history of smoking in the past. FAMILY HISTORY: Reports diabetes and heart disease in the family. ALLERGIES: HYDRALAZINE and ROCEPHIN. MEDICATIONS: As following: Metoprolol 50 mg p.o. b.i.d., lisinopril 10 mg daily, atorvastatin 20 mg p.o. daily, Xanax 0.5 mg p.o. b.i.d., bupropion 150 mg p.o. b.i.d., and Xarelto 15 mg at bedtime. I do not believe these are updated; however, these may not be accurate since the patient does not have a list of her medications with her. REVIEW OF SYSTEMS: The following complete review of systems was negative, unless otherwise mentioned in the HPI or below: Constitutional: Weight loss or gain, ability to conduct usual activities. Sk in: Rash, itching. Eyes: Double vision, pain. ENT/Mouth: Nose bleeding, neck stiffness, pain, te nderness. Cardiovascular: Palpitations, dyspnea on exertion, orthopnea. Respiratory: Shortness of breath, wheezing, cough, hemoptysis, fever or night sweats. Gastrointestinal: Poor appetite, abdominal pain, heartburn, nausea, vomiting , constipation, or diarrhea. Genitourinary: Urgency, frequency, dysuria, nocturia. Musculoskeletal: Pain, swelling. Neurologic/Psychiatric: Anxiety, depression. Allergy/Immunologic : Skin rash, bleeding tendency. LABORATORY RESULTS: As the following: WBC of 5.6, hemoglobin of 10.3, hematocrit 30.5, and platelet s of 285. Chemistry: Sodium of 139, potassium of 3.3, chloride of 107, magnesium of 1. Troponins x 2 were negative. PHYSICAL EXAMINATION: VITAL SIGNS: The patient is afebrile at 98.8. She appears to be tachycardic at 120s, blood pressure of 140/85, respirations are 16, and 98% on room air. GENERAL: She is awake, alert, appears pale, oriented x2. CARDIOVASCULAR: S1, S2 present. No murmurs, rubs, or gallops. LUNGS: Mild rhonchi to bilateral lower bases. No wheezing noted. CHEST WALL: Her left chest has a port. She does have some fullness around the left sternocleidomast oid muscle. ABDOMEN: Soft, nontender. Bowel sounds are present x2. No hepatomegaly or splenomegaly noted. EXTREMITIES: Pedal pulses are present x2. No pitting edema. ASSESSMENT AND PLAN: The patient is a very pleasant 72-year-old female who initially presents to the hospital with complaints of acute confusion. Acute confusion, most likely secondary to a newly found metastatic brain mass on the left hemisphere. The official report is not in the computer; however, was told it appears to be hemorrhagic in natur e. Neurosurgery has also already been consulted for this patient. We will put the patient on seizur e prophylaxis of Keppra 500 mg p.o. b.i.d. Also, we will start the patient on some Decadron and will also put the patient on proton pump inhibitor. Neurosurgery, as I mentioned, has been consulted. I did speak in detail to the patient's daughters in regard to the patient's overall poor prognosis giv en the fact that she was having a difficult time tolerating chemotherapy during her last treatment an d could not undergo 2 rounds of her chemotherapy and based on what her daughters have been telling me that she does have more metastatic lesions in the brain, which is in addition to the previous ones t hat were from the recent scans. We will get palliative care involved for this patient and we will co dixon to monitor.
[2017-12-07] MEDS: Dexamethasone 4 mg/ml Vial SLOW IVP SCH ×4 (01:48→18:22)
[2017-12-07 05:27] LABS: ALT (SGPT) 10 U/L (8-55); AST (SGOT) 14 U/L (5-34); Albumin 3.3 g/dL (3.4-4.8); Alkaline Phosphatase 81 U/L (40-150); Anion Gap 8 mmol/L (10-20); BUN (Urea Nitrogen) 15 mg/dL (9.8-20.1); Bilirubin, Total 0.4 mg/dL (0.2-1.2); Calc. Creatinine Clearance 69 mL/min (70-130); Calcium 9.1 mg/dL (7.8-10.44); Carbon Dioxide 24 mmol/L (23-31); Chloride 111 mmol/L (98-107); Estimated GFR-MDRD 90; Globulin 2.8 g/dL (2.4-3.5); Glucose 141 mg/dL (80-115); Protein, Total 6.1 g/dL (6.0-8.3); Sodium 139 mmol/L (136-145)
[2017-12-07 05:57] LABS: Band 2 % (5-11); Hemoglobin 9.3 g/dL (12.0-16.0); Lymphocytes 9 % (21-51); MDiff Complete? YES; Mean Corpuscular HGB CONC 34.1 g/dL (32.0-36.0); Mean Corpuscular Hemoglobin 31.1 pg (27.0-31.0); Mean Corpuscular Volume 91.2 fl (81.0-99.0); Mean Platelet Volume 6.5 fL (7.4-10.4); Monocytes 2 % (0-10); Neutrophil 86 % (42-75); PLT Morphology Comment Appears Adequate; Platelet Count 255 thou/uL (130-400); RBC Morphology Normal; Reactive Lymphocytes 1 % (0-10); Red Blood Cell (RBC) Count 3.01 mill/uL (4.20-5.40); White Blood Cell (WBC) Count 3.7 thou/uL (4.8-10.8)
[2017-12-07 06:23] LABS: Bilirubin Negative (Negative); Blood, Urine Negative (Negative); Clarity CLOUDY (Clear); Glucose, Urine (Dipstick) Negative (Negative); Leukocyte Small (Negative); Nitrite Negative (Negative); Protein, Urine (Dipstick) Negative (Neg-Trace); Specific Gravity, Urine 1.018 (1.002-1.036); pH, Urine 6.5 (5.0-9.0)
[2017-12-07 06:27] LABS: Bacteria/HPF 4+ HPF (None Seen); Hyaline Casts/LPF 0-3 HYALINE CAST LPF (0-3 Hyaline); RBC/HPF 0-3 HPF (0-3); Squamous Epithelial 0-3 HPF (0-3)
[2017-12-07] MEDS ORDERED: Magnesium 2 GM/NS 0.9% 50 ML 2 GM in Premix Bag 1 BAG IVPB SCH (08:45)
[2017-12-07] MEDS: Famotidine 20 MG TAB PO SCH ×2 (10:26→21:18)
[2017-12-07] MEDS: Potassium Chloride 20 MEQ TAB PO SCH (10:26)
[2017-12-07] MEDS: Metoprolol Tartrate 50 MG TAB PO SCH ×2 (10:27→21:18)
[2017-12-07] MEDS: levETIRAcetam 500 MG TAB PO SCH ×2 (10:27→21:18)
[2017-12-07] MEDS: Lisinopril 10 MG TAB PO SCH (10:27)
[2017-12-07] MEDS: ALPRAZolam 0.5 MG TAB PO SCH ×2 (10:30→21:18)
[2017-12-07] MEDS ORDERED: Gadobenate Dimeglumine 529 MG/1 ML (20ML VIAL) ONE (11:40)
--- NOTE | 2017-12-07 13:07 | CON ---
DATE OF CONSULTATION: 12/07/2017 REASON FOR CONSULTATION: Lung cancer. HISTORY OF PRESENT ILLNESS: Ms. Shell is a pleasant 72-year-old female who was diagnosed with bronchogenic carcinoma in 04/2017. She had a right apical nodule that was noted in the right l evangelina as far back as 2011. It was PET negative at that time and it remained stable for a period of ghassan e. She is a heavy smoker and continues to smoke. Unfortunately, she was lost to follow up and suffe red a thrombotic left cerebral CVA in 02/2017 with residual aphasia and right-sided weakness. A ches t x-ray at that time was abnormal. So a CT was performed and showed a 3.5 cm right apical mass. PET showed poorly differentiated adenocarcinoma. She had a negative brain CT at that time. She underwe nt treatment with chemotherapy and then radiation. Fortunately the CT scan in July showed that t he right upper lobe mass persisted. However, it was not worsening and the plan was to just observe a nd check CT scan. She did have a scan on 11/14/2017. This showed an enlarged subcarinal lymph node measuring 1.7 x 1.3 cm. This was a new development. There was some worsening opacification of the r ight upper lobe which could possibly be treatment related. She also had a left IJ thrombosis. She w as started on Xarelto in early November and has been taking it every day. Over the last few days, she h as had some altered mental status and presented to the emergency room for evaluation. Chest x-ray ag ain confirmed the mass-like opacity in the right upper lobe. She had a vascular ultrasound once agai n confirming the left IJ thrombosis. Brain CT showed a new small 0.9 cm dense intraaxial lesion of t he left parasagittal convexity. There is a small high level of vasogenic edema. The neurosurgeons w ere consulted and seen the patient and have ordered a brain MRI. The patient is oriented at this ghassan e. She denies any headache, blurred vision, chest pain or shortness of breath. PAST MEDICAL HISTORY: 1. 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 2. Chronic alcoholism. 3. Hypertension. 4. Hyperlipidemia. 5. Arthritis. 6. Anxiety and depression. 7. Gastroesophageal reflux disease. 8. Chronic obstructive pulmonary disease. 9. History of cerebrovascular accident. 10. Chronic kidney disease. PAST SURGICAL HISTORY: 1. x2. 2. Excision of sebaceous cyst. 3. Right lung biopsy. 4. MediPort placement. ALLERGIES: HYDRALAZINE and CEFTRIAXONE. HOME MEDICATIONS: 1. Xanax 0.5 mg b.i.d. p.r.n. 2. Aspirin 81 mg daily. 3. Lipitor 40 mg daily. 4. Metoprolol tartrate 50 mg b.i.d. 5. Protonix 40 mg daily. 6. Xarelto 20 mg daily. 7. Calan 120 mg b.i.d. FAMILY HISTORY: Mother had bone cancer. Father had colon cancer. SOCIAL HISTORY: , has 2 children, lives alone. Quit smoking in April. Discontinued alc ohol about a year ago. REVIEW OF SYSTEMS: Twelve point review of systems is negative except for noted in HPI. PHYSICAL EXAMINATION: VITAL SIGNS: Temperature is 97.4, pulse is 101, respiratory rate 16, BP is 136/66. She is 100% on r oom air. GENERAL: This is a chronically ill-appearing female in no acute distress. HEENT: Normocephalic, atraumatic. Pupils are equal and reactive to light. She has right facial otilia op. NECK: Supple. CARDIOVASCULAR: Regular rate and rhythm. LUNGS: Clear. ABDOMEN: Soft, nontender, bowel sounds are positive. EXTREMITIES: There is no clubbing, cyanosis or edema. SKIN: No rash. HEMATOLOGIC: There is no petechia or purpura. NEUROLOGIC: She has facial droop and some altered speech. PSYCHIATRIC: She is appropriate. PERTINENT LABORATORY DATA AND IMAGING DATA: Current WBCs are 3.7, hemoglobin 9.3, hematocrit 27.4, p latelet count 255,000, 86% neutrophils, 9% lymphocytes. PT 17.4, INR is 1.4, PTT is 36.3. Sodium 13 9, potassium 4.0, chloride 111, CO2 is 24, BUN is 15, creatinine 0.67, calcium is 9.1, magnesium 1.3, total bilirubin is 0.4, AST is 14, ALT is 10, alkaline phosphatase is 81. Troponin is negative. Se rum total protein is 6.1, albumin 3.3, globulin 2.8. Urine showed 4+ bacteria. Radiology per HPI. IMPRESSION: 1. Stage IIIB lung cancer with a possible new brain met. 2. Left jugular vein thrombosis. 3. History of left-sided CVA with right-sided weakness and facial droop. DISCUSSION: Patient's Xarelto has been held. She has been started on IV steroids. A brain MRI is p ending. Further treatment will be based on the results of the MRI. This was discussed with the elizabeth hter and the patient at bedside. Thank you for the consult. We will follow her hospital course closely.
--- NOTE | 2017-12-07 13:29 | MRI ---
BRAIN MRI WITH AND WITHOUT CONTRAST: Date: 12/07/17 HISTORY: Right upper lobe non-small cell lung cancer. Recent mental status change, confusion, nausea, and drow siness. Hemorrhagic brain lesion. COMPARISON: 03/14/17. CORRELATION: Noncontrast head CT dated 12/06/17. TECHNIQUE: Brain MRI is performed with and without intravenous Gadolinium administration. Multisequential, multi planar imaging is performed. FINDINGS: No hemorrhage on the axial gradient echo sequence. Redemonstration of malacic and gliotic change invo lving the left temporal lobe likely due to remote left MCA distribution infarction. There are T2 and FLAIR white matter hyperintensities that are due to chronic small vessel ischemic changes. Additional T2 and FLAIR white matter hyperintensities have associated enhancing lesion suggesting areas of vaso genic edema. Central arterial flow-voids are maintained. Absent restricted diffusion. No evidence of hydrocephalus. Adequate aeration of the left mastoid air cell. Minimal right mastoid air cell opacification. Minimal mucosal disease involving the left maxillary sinus. Calvarium has a normal marrow signal intensity. Midline brain parenchymal structures are unremarkable . Multifocal enhancing foci throughout the cerebrum. There is an enhancing focus measuring 3.0 mm, like ly corresponds to the hyperdensity noted on recent CT. There is an enhancing focus involving the rig ht temporal lobe measuring 0.6 x 0.6 cm. Enhancing focus involving the left parietal lobe measuring 0 .5 x 0.9 cm. Enhancing focus in the left occipital lobe measuring 0.6 x 0.5 cm. Small enhancing focus in the anterior limb of the left internal capsule measuring 0.3 cm. These enhancing foci are not joey reciated on previous examination. IMPRESSION: Multifocal enhancing foci. There is evidence for multifocal intracranial metastases. POS: [facility]
[2017-12-07] MEDS: Magnesium 2 GM/NS 0.9% 100 ML 2 GM in Premix Bag 1 BAG IVPB SCH ×2 (13:32→13:34)
--- NOTE | 2017-12-07 15:08 | PDOC.PN ---
- Subjective Encounter Start Date: 12/07/17 Encounter Start Time: 11:30 Subjective: pt up in bed no complains - Objective Vital Signs & Weight: Vital Signs (12 hours) Temp Pulse Resp BP BP Pulse Ox 12/07/17 11:38 97.4 F L 81 16 128/72 96 12/07/17 10:27 136/66 12/07/17 08:45 97.4 F L 81 16 100 12/07/17 08:00 97.4 F L 101 H 16 136/66 100 12/07/17 05:53 99.1 F 91 18 145/76 H 96 12/07/17 04:55 97.5 F L 93 18 135/70 96 Weight Weight 120 lb I&O: 12/06/17 12/07/17 12/08/17 06:59 06:59 06:59 Intake Total 575 Output Total 200 Balance 375 Result Diagrams: 12/07/17 04:46 12/07/17 04:46 Phys Exam - Physical Examination HEENT: PERRLA, moist MMs, sclera anicteric, TM's clear, oral pharynx no lesions , 2+ tonsils appears pale Neck: no nodes, no JVD, supple, full ROM Respiratory: no wheezing, no rales, no rhonchi, wheezing present, clear to auscultation bilateral Cardiovascular: RRR, no significant murmur, no rub, gallop, irregular Gastrointestinal: soft, non-tender, no distention, positive bowel sounds left chest port no pain on palpation Neurological: non-focal Dx/Plan - Plan 1) Acute confusion 2) New brain mets 3) lung cancer 4) hypomagnesium plan: pt had MRI today which indicated multifocal foci in her brain. Pt is on steroids and keppra. will notify pt and her daughter of new findings. will replace magnesium. oncology on board. Neurosurgery on board. xarelto on hold for now. ultrasound indicated L internal jugular clots ( where the port is). * . Review of Systems - Review of Systems Eyes: negative: Pain, Vision Change, Conjunctivae Inflammation, Eyelid Inflammation, Redness, Other ENT: negative: Ear Pain, Ear Discharge, Nose Pain, Nose Discharge, Nose Congestion, Mouth Pain, Mouth Swelling, Throat Pain, Throat Swelling, Other Respiratory: negative: Cough, Dry, Shortness of Breath, Hemoptysis, SOB with Excertion, Pleuritic Pain, Sputum, Wheezing Cardiovascular: negative: chest pain, palpitations, orthopnea, paroxysmal nocturnal dyspnea, edema, light headedness, other Gastrointestinal: negative: Nausea, Vomiting, Abdominal Pain, Diarrhea, Constipation, Melena, Hematochezia, Other - Medications/Allergies Allergies/Adverse Reactions: Allergies Allergy/AdvReac Type Severity Reaction Status Date / Time ceftriaxone [From Rocephin] Allergy Verified 06/05/17 17:01 hydralazine Allergy Verified 06/05/17 17:01 Medications: Current Medications Acetaminophen (Tylenol) 650 mg PO Q4H PRN PRN Reason: Headache/Fever or Pain Last Admin: 12/07/17 10:27 Dose: 650 mg Alprazolam (Xanax) 0.5 mg PO BID [facility] Last Admin: 12/07/17 10:30 Dose: Not Given Atorvastatin Calcium (Lipitor) 40 mg PO 2100 [facility] Dexamethasone (Decadron) 4 mg SLOW IVP Q6HR [facility] Last Admin: 12/07/17 13:30 Dose: 4 mg Famotidine (Pepcid) 20 mg PO BID [facility] Last Admin: 12/07/17 10:26 Dose: 20 mg Levetiracetam (Keppra) 500 mg PO BID [facility] Last Admin: 12/07/17 10:27 Dose: 500 mg Lisinopril (Zestril) 10 mg PO DAILY [facility] Last Admin: 12/07/17 10:27 Dose: 10 mg Metoprolol Tartrate (Lopressor) 50 mg PO BID [facility] Last Admin: 12/07/17 10:27 Dose: 50 mg Potassium Chloride (K-Dur) 20 meq PO QAM-WM [facility] Last Admin: 12/07/17 10:26 Dose: 20 meq Sodium Chloride (Flush - Normal Saline) 10 ml IVF Q12HR [facility] Last Admin: 12/07/17 05:34 Dose: 10 ml Sodium Chloride (Flush - Normal Saline) 10 ml IVF PRN PRN PRN Reason: Saline Flush
[2017-12-07] MEDS ORDERED: Dextrose 50% Abboject 50 ML SYRINGE SLOW IVP PRN (15:12)
[2017-12-07] MEDS ORDERED: HumaLOG 300 UNITS/3 ML VIAL SC PRN (15:12)
[2017-12-07] MEDS ORDERED: Dextrose 5% in Water 1,000 ML IV PRN (15:12)
[2017-12-07] MEDS ORDERED: Morphine 4 MG/ML VIAL SLOW IVP SCH (21:00)
[2017-12-07] MEDS: Atorvastatin Calcium 40 MG TAB PO SCH (21:18)
--- NOTE | 2017-12-07 23:42 | CON ---
DATE OF CONSULTATION: 12/07/2017 REASON FOR CONSULTATION: Ms. Shell is a 72-year-old female well known to me who has just been diag nosed with brain metastasis. I was asked to see her discuss her options with radiation therapy. HISTORY OF PRESENT ILLNESS: Ms. Shell was diagnosed in March or April of 2017 with a stage II IB, [id number] adenocarcinoma of the right upper lobe of the lung. She did have a biopsy of the right u pper lobe lung mass. She was treated with chemoradiotherapy with her radiation completed on 07/03/20. Since then she has been followed. She had a CT scan of the chest in July that looked fairly good. However, on recent CT scan in late October, she had a new small right-sided pleural effusion. There was a new subcarinal lymph node and a new necrotic appearing lymph node adjacent to the mid tho racic esophagus that worried for recurrent disease. She has left jugular venous thrombosis from her MediPort. She was started on Xarelto. She was doing fairly well until the preceding several days pr ior to admission. She was becoming increasingly confused. She was having some left-sided shoulder a nd neck and head pain. She was not having any nausea or vomiting. Because of the confusion, she was brought in for evaluation and she had a CT scan of the head which showed evidence of her old infarct ion. There was a new lesion suggestive of a possible hemorrhagic metastasis that was small. She was therefore started on Decadron and earlier today underwent an MRI of the brain. This showed at least 6 contrast enhancing lesions scattered through the brain consistent with metastatic disease. The la rgest measured 9 mm. There was no evidence of acute infarction. Since being started on the Decadron , it appears that her confusion is better, although her family states that she is still confused. Aniyah qureshi feels that the pain is better since starting on the Decadron. She is no longer having headaches or shoulder pain. Her breathing remains stable. She is having no difficulty with eating or swallowing . She voices no other complaints. PAST MEDICAL HISTORY: 1. Hypertension. 2. History of supraventricular tachycardia. 3. CVA in February with mild residual difficulties with her speech. 4. Chronic obstructive pulmonary disease. 5. GE reflux disease. 6. History of drug-induced lupus. 7. Status post x2. 8. Status post D&C. 9. Status post cone biopsy of the cervix. 10. Lung cancer as mentioned above. MEDICATIONS: Metoprolol, lisinopril, Keppra, Pepcid, Decadron, and Lipitor. ALLERGIES: CEFTRIAXONE which caused rash and HYDRALAZINE, which caused lupus. SOCIAL HISTORY: She smoked for 50 years. She smoked up to 2 packs per day until she stopped around the time of her diagnosis. She also used to drink alcohol in the past, but is not drinking at the pr esent time. She does live by herself, but has family members who live nearby. Her daughters are wit h her today in the room. FAMILY HISTORY: Her father from colon cancer at age 79. Her mother from "bone cancer" at age 47. There was no family history of lung cancer. REVIEW OF SYSTEMS: Twelve system review of systems is otherwise negative. PHYSICAL EXAMINATION: VITAL SIGNS: Height 5 feet 2 inches, weight 120 pounds, blood pressure 128/72, pulse is 81, respirat ions are 16, temperature 97.4, O2 saturation 96%. GENERAL: She is alert and oriented. Today, she is able to get the date, the location, and the presi dent correctly. Her family members note that this was the first time she has done that. Karnofsky p erformance status is 70%. HEENT: Eyes, pupils equal, round, and reactive to light. Extraocular muscles are intact. ENT: Ora l cavity and oropharynx normal without lesion or erythema. Palate elevates symmetrically. Gingiva i s intact. NECK: Supple, without cervical or supraclavicular adenopathy. No thyromegaly. Larynx midline. LUNGS: Breathing nonlabored. Clear to auscultation and percussion on the left. There are some decr eased breath sounds in the right lower lobe. HEART: Regular rate and rhythm without murmur. No lower extremity edema. BACK: No tenderness on fist percussion of her spine. LYMPHATIC: No axillary or inguinal adenopathy. ABDOMEN: Bowel sounds present. Soft, nontender, nondistended, without mass or hepatosplenomegaly. Liver percussed is normal size. SKIN: Without rash or purpura. NEUROLOGIC: Cranial nerves II-XII grossly intact. Motor strength is 5/5 in both upper and lower ext remities in all muscle groups tested. Reflexes are brisk but symmetrical. Gait was not tested. RADIOLOGIC DATA: CT scan of the head and MRI of the brain were both personally reviewed. Again, the MRI of the brain shows at least 6 contrast enhancing lesions. The largest is 9 mm. These are scatt ered throughout the brain. LABORATORY DATA: Chemistry group showed normal electrolytes. Creatinine was 0.65. CBC revealed a w alex blood cell count of 3700 with hemoglobin of 9.3, hematocrit of 27.4, platelet count of 255,000. ASSESSMENT: Mr. Shell is a 72-year-old female with a known history of a stage IIIB adenocarcinoma of the right upper lobe of the lung who was found to have relapsed in the mediastinum about 1 month a go and now has been found to have brain metastases. PLAN: I had a long discussion with Ms. Shell and her daughters regarding her diagnosis, prognosis, prognostic factors, and treatment options. I explained the results of the MRI. I explained that aniyah qureshi does not have curable disease, but that the disease can still be treated. Her confusion does seem to be improving with the dexamethasone. The confusion is likely related to her brain metastasis. Gi mariah the small size of the brain metastasis, I think there is a reasonable chance that this can be con trolled with whole-brain radiation therapy. Because of the number of lesions, she is not a candidate for radiosurgery. Her best option is treatment with whole-brain radiation therapy. The logistics o f radiation as well as the benefits and risks of treatment were discussed. Side effects would includ e but not be limited to skin reaction, fatigue, lower blood counts, hair loss which may be permanent, headache, nausea, vomiting, and small risk of damage to her brain which might affect memory or menta tion. Certainly uncontrolled disease in the brain will affect her memory and mentation. If she deci shara to pursue radiation therapy, we can treat her with Namenda, which can reduce some of the cognitiv e effects of whole-brain radiation therapy. Her only other option for treatment would be to do nothi ng or possibly pursue some sort of chemotherapy. I think chemotherapy is not likely to be effective in controlling her brain disease. Also, I do not have any information to give her about possible imm unotherapy whether that would have some effect in the brain. She had planned to meet with Dr. Chuyita patterson on Monday to discuss these issues further. We discussed the prognosis if we did not do any therapy . Again, I recommended that we proceed with whole-brain radiation therapy. Time was taken to answer all their questions. She wishes to think about her treatment options over the next day or two and t hen make a treatment decision. I asked her to contact me should she have further questions. If she decides to pursue radiation therapy, then we can make plans to proceed accordingly. Radiation can be done as an outpatient, so if she is stable enough for discharge and she can certainly be discharged home and the radiation including the simulation can be done as an outpatient. Thank you for this interesting consultation.
[2017-12-08] MEDS: Dexamethasone 4 mg/ml Vial SLOW IVP SCH ×5 (01:01→23:16)
[2017-12-08] MEDS: levETIRAcetam 500 MG TAB PO SCH ×2 (10:18→20:43)
[2017-12-08] MEDS: Famotidine 20 MG TAB PO SCH ×2 (10:18→20:43)
[2017-12-08] MEDS: Lisinopril 10 MG TAB PO SCH ×2 (10:19→10:21)
[2017-12-08] MEDS: ALPRAZolam 0.5 MG TAB PO SCH ×2 (10:19→20:43)
[2017-12-08] MEDS: Metoprolol Tartrate 50 MG TAB PO SCH ×2 (10:19→20:43)
--- NOTE | 2017-12-08 12:08 | PDOC.PN ---
- Subjective Encounter Start Date: 12/08/17 Encounter Start Time: 07:15 -: old records requested/rev Patient seen and examined. No new complaints. No overnight events pt feels off balance - Objective MAR Reviewed: Yes Vital Signs & Weight: Vital Signs (12 hours) Temp Pulse Resp BP Pulse Ox 12/08/17 11:36 97.4 F L 83 19 163/72 H 96 12/08/17 08:00 97.6 F 76 19 12/08/17 07:44 97.6 F 76 19 147/68 H 95 12/08/17 05:16 97.7 F 86 24 H 146/70 H 96 12/08/17 03:14 97.7 F 87 16 143/68 H 91 L 12/08/17 02:04 97 12/08/17 00:11 97.5 F L 84 16 133/66 91 L Weight Weight 120 lb I&O: 12/07/17 12/08/17 12/09/17 06:59 06:59 06:59 Intake Total 575 Output Total 200 Balance 375 Result Diagrams: 12/07/17 04:46 12/07/17 04:46 Additional Labs: Accuchecks 12/08/17 12/08/17 12/07/17 10:58 05:34 21:20 POC Glucose 137 H 124 H 151 H Radiology Reviewed by me: Yes EKG Reviewed by me: Yes (nsr) Phys Exam - Physical Examination Constitutional: NAD HEENT: PERRLA, moist MMs, sclera anicteric Neck: no JVD, supple Respiratory: no wheezing, no rales, no rhonchi Cardiovascular: RRR, no significant murmur, no rub Gastrointestinal: soft, non-tender, no distention, positive bowel sounds Musculoskeletal: no edema, pulses present Neurological: non-focal, normal sensation, moves all 4 limbs Lymphatic: no nodes Psychiatric: normal affect, A&O x 3 Skin: no rash, normal turgor Dx/Plan (1) Encephalopathy acute Code(s): G93.40 - ENCEPHALOPATHY, UNSPECIFIED Status: Acute (2) H/O: CVA (cerebrovascular accident) Code(s): Z86.73 - PRSNL HX OF TIA (TIA), AND CEREB INFRC W/O RESID DEFICITS Status: Acute (3) 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 Code(s): C34.90 - MALIGNANT NEOPLASM OF UNSP PART OF UNSP BRONCHUS OR LUNG; C79.31 - SECONDARY MALIGNANT NEOPLASM OF BRAIN Status: Acute (4) Thrombosis of left internal jugular vein Code(s): I82.C12 - ACUTE EMBOLISM AND THROMBOSIS OF LEFT INTERNAL JUGULAR VEIN Status: Acute (5) Anemia, normocytic normochromic Code(s): D64.9 - ANEMIA, UNSPECIFIED Status: Chronic (6) Anxiety and depression Code(s): F41.9 - ANXIETY DISORDER, UNSPECIFIED; F32.9 - MAJOR DEPRESSIVE DISORDER, SINGLE EPISODE, UNSPECIFIED Status: Chronic (7) COPD (chronic obstructive pulmonary disease) Status: Chronic (8) Dyslipidemia Code(s): E78.5 - HYPERLIPIDEMIA, UNSPECIFIED Status: Chronic (9) GERD (gastroesophageal reflux disease) Code(s): K21.9 - GASTRO-ESOPHAGEAL REFLUX DISEASE WITHOUT ESOPHAGITIS Status: Chronic (10) HTN (hypertension) Code(s): I10 - ESSENTIAL (PRIMARY) HYPERTENSION Status: Chronic (11) Lung cancer Code(s): C34.90 - MALIGNANT NEOPLASM OF UNSP PART OF UNSP BRONCHUS OR LUNG Status: Chronic (12) Tobacco abuse Code(s): Z72.0 - TOBACCO USE Status: Chronic (13) Hypomagnesemia Code(s): E83.42 - HYPOMAGNESEMIA Status: Resolved - Plan cont current plan of care, plan discussed w/ family, PT/OT * encephalopathy seems resolved * pt has decided not to go for any treatment * code status discussed and she wants to be DNR * out of hospital DNR paper will be done * palliative care consulted * all consultants recommendation noted and discussed with family * medication reviewed as below * symptomatic treatment. * send urine culture Review of Systems - Review of Systems Constitutional: negative: fever, chills, sweats, weakness, malaise, other Eyes: negative: Pain, Vision Change, Conjunctivae Inflammation, Eyelid Inflammation, Redness, Other ENT: negative: Ear Pain, Ear Discharge, Nose Pain, Nose Discharge, Nose Congestion, Mouth Pain, Mouth Swelling, Throat Pain, Throat Swelling, Other Respiratory: negative: Cough, Dry, Shortness of Breath, Hemoptysis, SOB with Excertion, Pleuritic Pain, Sputum, Wheezing Cardiovascular: negative: chest pain, palpitations, orthopnea, paroxysmal nocturnal dyspnea, edema, light headedness, other Gastrointestinal: negative: Nausea, Vomiting, Abdominal Pain, Diarrhea, Constipation, Melena, Hematochezia, Other Genitourinary: negative: Dysuria, Frequency, Incontinence, Hematuria, Retention , Other Musculoskeletal: negative: Neck Pain, Shoulder Pain, Arm Pain, Back Pain, Hand Pain, Leg Pain, Foot Pain, Other Skin: negative: Rash, Lesions, Reynaldo, Bruising, Other Neurological: Incoordination. negative: Weakness, Numbness, Change in Speech, Confusion, Seizures, Other - Medications/Allergies Allergies/Adverse Reactions: Allergies Allergy/AdvReac Type Severity Reaction Status Date / Time ceftriaxone [From Rocephin] Allergy Verified 06/05/17 17:01 hydralazine Allergy Verified 06/05/17 17:01 Medications: Current Medications Acetaminophen (Tylenol) 650 mg PO Q4H PRN PRN Reason: Headache/Fever or Pain Last Admin: 12/07/17 10:27 Dose: 650 mg Alprazolam (Xanax) 0.5 mg PO BID [facility] Last Admin: 12/08/17 10:19 Dose: Not Given Atorvastatin Calcium (Lipitor) 40 mg PO 2100 [facility] Last Admin: 12/07/17 21:18 Dose: 40 mg Dexamethasone (Decadron) 4 mg SLOW IVP Q6HR [facility] Last Admin: 12/08/17 05:18 Dose: 4 mg Dextrose/Water (Dextrose 50%) 25 gm SLOW IVP PRN PRN PRN Reason: Hypoglycemia Famotidine (Pepcid) 20 mg PO BID [facility] Last Admin: 12/08/17 10:18 Dose: 20 mg Glucagon (Glucagon) 1 mg IM PRN PRN PRN Reason: Hypoglycemia Dextrose/Water (D5w) 1,000 mls @ 0 mls/hr IV .Q0M PRN; As Directed PRN Reason: Hypoglycemia Insulin Human Lispro (Humalog) 0 units SC .MILD SLIDING SCALE PRN PRN Reason: Mild Correctional Scale Levetiracetam (Keppra) 500 mg PO BID [facility] Last Admin: 12/08/17 10:18 Dose: 500 mg Lisinopril (Zestril) 10 mg PO DAILY [facility] Last Admin: 12/08/17 10:21 Dose: 10 mg Metoprolol Tartrate (Lopressor) 50 mg PO BID [facility] Last Admin: 12/08/17 10:19 Dose: 50 mg Potassium Chloride (K-Dur) 20 meq PO QAM-WM [facility] Last Admin: 12/07/17 10:26 Dose: 20 meq Sodium Chloride (Flush - Normal Saline) 10 ml IVF Q12HR [facility] Last Admin: 12/07/17 21:18 Dose: 10 ml Sodium Chloride (Flush - Normal Saline) 10 ml IVF PRN PRN PRN Reason: Saline Flush Last Admin: 12/08/17 05:19 Dose: 10 ml
[2017-12-08] MEDS ORDERED: Morphine 4 MG/ML VIAL SLOW IVP PRN (12:25)
[2017-12-08] MEDS: Morphine 10 MG/ML VIAL SLOW IVP PRN ×2 (12:58→20:49)
[2017-12-08] MEDS ORDERED: Verapamil SR 120 MG TAB PO SCH (16:00)
[2017-12-08] MEDS ORDERED: Verapamil 120 MG TAB PO SCH (17:00)
[2017-12-08] MEDS: Atorvastatin Calcium 40 MG TAB PO SCH (20:43)
--- NOTE | 2017-12-08 21:21 | PRG ---
DATE OF SERVICE: 12/08/2017 This is a 30-minute initial hospital visit note in which 30 minutes were spent in review the imaging record, evaluation, examination of patient, and formulation of plan. Greater than 50% of this time w as spent in counseling on Yvrose Shell. I reviewed the notes of my colleague Kei Kong PA-C, and agree with its content. Ms. Shell i s a very pleasant 72-year-old woman. She has a history of carcinoma. She was brought in for concern of confusion. Head CT hinted that perhaps a left posterior frontal hemorrhagic lesion with associat ed edema. MRI demonstrates multifocal intracranial metastases. Her exam is as laid out by my collea abe Ms. Luann PA-C. The patient has already been seen by Radiation Oncology and is strongly leani ng against any further treatment including neither external beam radiation therapy nor radiosurgery. IMPRESSION AND PLAN: As such, at this point, I think it is appropriate to finalize the patient's shara joaquin not to pursue any further treatment for discussion with her daughters. Certainly there is no rol e for surgical intervention in the form of biopsy or resection. As such, I will sign off and we will be happy to see the patient in outpatient should she wants to pursue radiosurgery. 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
[2017-12-08] MEDS ORDERED: Ondansetron ODT 4 MG TAB PO PRN (21:53)
[2017-12-09] MEDS: Dexamethasone 4 mg/ml Vial SLOW IVP SCH (05:46)
[2017-12-09] MEDS: Potassium Chloride 20 MEQ TAB PO SCH (09:31)
[2017-12-09] MEDS: ALPRAZolam 0.5 MG TAB PO SCH ×2 (09:31→22:18)
[2017-12-09] MEDS: levETIRAcetam 500 MG TAB PO SCH ×2 (09:31→22:19)
[2017-12-09] MEDS: Lisinopril 10 MG TAB PO SCH (09:31)
[2017-12-09] MEDS: Verapamil 120 MG TAB PO SCH ×2 (09:32→22:19)
[2017-12-09] MEDS: Famotidine 20 MG TAB PO SCH ×2 (09:32→22:18)
[2017-12-09] MEDS: Metoprolol Tartrate 50 MG TAB PO SCH ×2 (09:32→22:19)
[2017-12-09] MEDS: Ibuprofen 200 MG TAB PO PRN ×2 (11:04→19:06)
--- NOTE | 2017-12-09 11:25 | PDOC.PN ---
- Subjective Encounter Start Date: 12/09/17 Encounter Start Time: 07:10 pt is unsteady and weak, has cough Patient seen and examined. No overnight events - Objective Resuscitation Status: Resuscitation Status DNR:Do Not Resuscitate MAR Reviewed: Yes Vital Signs & Weight: Vital Signs (12 hours) Temp Pulse Resp BP BP Pulse Ox 12/09/17 09:31 136/66 12/09/17 07:45 97.8 F 73 18 148/66 H 95 12/09/17 03:01 98.1 F 72 16 137/61 94 L Weight Weight 120 lb I&O: 12/08/17 12/09/17 12/10/17 06:59 06:59 06:59 Output Total 250 Balance -250 Result Diagrams: 12/07/17 04:46 12/07/17 04:46 Additional Labs: Accuchecks 12/09/17 12/08/17 12/08/17 05:29 20:56 17:05 POC Glucose 150 H 154 H 139 H EKG Reviewed by me: Yes (nsr) Phys Exam - Physical Examination Constitutional: NAD HEENT: PERRLA, moist MMs, sclera anicteric Neck: no JVD, supple Respiratory: no wheezing, no rales, no rhonchi Cardiovascular: RRR, no significant murmur, no rub Gastrointestinal: soft, non-tender, no distention, positive bowel sounds Musculoskeletal: no edema, pulses present Neurological: non-focal, normal sensation, moves all 4 limbs Lymphatic: no nodes Psychiatric: normal affect, A&O x 3 Skin: no rash, normal turgor Dx/Plan (1) Encephalopathy acute Code(s): G93.40 - ENCEPHALOPATHY, UNSPECIFIED Status: Resolved (2) H/O: CVA (cerebrovascular accident) Code(s): Z86.73 - PRSNL HX OF TIA (TIA), AND CEREB INFRC W/O RESID DEFICITS Status: Acute (3) 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 Code(s): C34.90 - MALIGNANT NEOPLASM OF UNSP PART OF UNSP BRONCHUS OR LUNG; C79.31 - SECONDARY MALIGNANT NEOPLASM OF BRAIN Status: Acute (4) Thrombosis of left internal jugular vein Code(s): I82.C12 - ACUTE EMBOLISM AND THROMBOSIS OF LEFT INTERNAL JUGULAR VEIN Status: Acute (5) Anemia, normocytic normochromic Code(s): D64.9 - ANEMIA, UNSPECIFIED Status: Chronic (6) Anxiety and depression Code(s): F41.9 - ANXIETY DISORDER, UNSPECIFIED; F32.9 - MAJOR DEPRESSIVE DISORDER, SINGLE EPISODE, UNSPECIFIED Status: Chronic (7) COPD (chronic obstructive pulmonary disease) Status: Chronic (8) Dyslipidemia Code(s): E78.5 - HYPERLIPIDEMIA, UNSPECIFIED Status: Chronic (9) GERD (gastroesophageal reflux disease) Code(s): K21.9 - GASTRO-ESOPHAGEAL REFLUX DISEASE WITHOUT ESOPHAGITIS Status: Chronic (10) HTN (hypertension) Code(s): I10 - ESSENTIAL (PRIMARY) HYPERTENSION Status: Chronic (11) Lung cancer Code(s): C34.90 - MALIGNANT NEOPLASM OF UNSP PART OF UNSP BRONCHUS OR LUNG Status: Chronic (12) Tobacco abuse Code(s): Z72.0 - TOBACCO USE Status: Chronic (13) Hypomagnesemia Code(s): E83.42 - HYPOMAGNESEMIA Status: Resolved - Plan cont current plan of care, 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 Review of Systems - Review of Systems Constitutional: negative: fever, chills, sweats, weakness, malaise, other Eyes: negative: Pain, Vision Change, Conjunctivae Inflammation, Eyelid Inflammation, Redness, Other ENT: negative: Ear Pain, Ear Discharge, Nose Pain, Nose Discharge, Nose Congestion, Mouth Pain, Mouth Swelling, Throat Pain, Throat Swelling, Other Respiratory: Cough. negative: Dry, Shortness of Breath, Hemoptysis, SOB with Excertion, Pleuritic Pain, Sputum, Wheezing Cardiovascular: negative: chest pain, palpitations, orthopnea, paroxysmal nocturnal dyspnea, edema, light headedness, other Gastrointestinal: negative: Nausea, Vomiting, Abdominal Pain, Diarrhea, Constipation, Melena, Hematochezia, Other Genitourinary: negative: Dysuria, Frequency, Incontinence, Hematuria, Retention , Other Musculoskeletal: negative: Neck Pain, Shoulder Pain, Arm Pain, Back Pain, Hand Pain, Leg Pain, Foot Pain, Other Skin: negative: Rash, Lesions, Reynaldo, Bruising, Other Neurological: Incoordination. negative: Weakness, Numbness, Change in Speech, Confusion, Seizures, Other - Medications/Allergies Allergies/Adverse Reactions: Allergies Allergy/AdvReac Type Severity Reaction Status Date / Time ceftriaxone [From Rocephin] Allergy Verified 06/05/17 17:01 hydralazine Allergy Verified 06/05/17 17:01 Medications: Current Medications Acetaminophen (Tylenol) 650 mg PO Q4H PRN PRN Reason: Headache/Fever or Pain Last Admin: 12/07/17 10:27 Dose: 650 mg Alprazolam (Xanax) 0.5 mg PO BID [facility] Last Admin: 12/09/17 09:31 Dose: 0.5 mg Aspirin (Aspirin Chewable) 81 mg PO DAILY [facility] Last Admin: 12/09/17 09:31 Dose: 81 mg Atorvastatin Calcium (Lipitor) 40 mg PO 2100 [facility] Last Admin: 12/08/17 20:43 Dose: 40 mg Dexamethasone (Decadron) 4 mg SLOW IVP Q6HR [facility] Last Admin: 12/09/17 05:46 Dose: 4 mg Dextrose/Water (Dextrose 50%) 25 gm SLOW IVP PRN PRN PRN Reason: Hypoglycemia Famotidine (Pepcid) 20 mg PO BID [facility] Last Admin: 12/09/17 09:32 Dose: 20 mg Glucagon (Glucagon) 1 mg IM PRN PRN PRN Reason: Hypoglycemia Dextrose/Water (D5w) 1,000 mls @ 0 mls/hr IV .Q0M PRN; As Directed PRN Reason: Hypoglycemia Ibuprofen (Motrin) 400 mg PO Q6H PRN PRN Reason: Pain Last Admin: 12/09/17 11:04 Dose: 400 mg Insulin Human Lispro (Humalog) 0 units SC .MILD SLIDING SCALE PRN PRN Reason: Mild Correctional Scale Levetiracetam (Keppra) 500 mg PO BID [facility] Last Admin: 12/09/17 09:31 Dose: 500 mg Lisinopril (Zestril) 10 mg PO DAILY [facility] Last Admin: 12/09/17 09:31 Dose: 10 mg Metoprolol Tartrate (Lopressor) 50 mg PO BID [facility] Last Admin: 12/09/17 09:32 Dose: 50 mg Morphine Sulfate (Morphine) 2 mg SLOW IVP Q4H PRN PRN Reason: Moderate to Severe Pain (6-10) Last Admin: 12/08/17 20:49 Dose: 2 mg Potassium Chloride (K-Dur) 20 meq PO QAM-WM [facility] Last Admin: 12/09/17 09:31 Dose: 20 meq Sodium Chloride (Flush - Normal Saline) 10 ml IVF Q12HR [facility] Last Admin: 12/09/17 09:32 Dose: 10 ml Sodium Chloride (Flush - Normal Saline) 10 ml IVF PRN PRN PRN Reason: Saline Flush Last Admin: 12/09/17 05:47 Dose: 10 ml Verapamil HCl (Calan) 120 mg PO BID [facility] Last Admin: 12/09/17 09:32 Dose: 120 mg
[2017-12-09] MEDS: Dexamethasone 4 MG TAB PO SCH ×2 (12:43→16:52)
[2017-12-09] MEDS ORDERED: Cipro 250 MG TAB PO SCH (20:00)
[2017-12-09] MEDS: Cipro 250 MG TAB PO SCH (22:18)
[2017-12-09] MEDS: Atorvastatin Calcium 40 MG TAB PO SCH (22:18)
[2017-12-10] MEDS: Dexamethasone 4 MG TAB PO SCH ×4 (00:15→17:42)
[2017-12-10] MEDS: Cipro 250 MG TAB PO SCH (05:19)
[2017-12-10 07:32] LABS: Anion Gap 14 mmol/L (10-20); BUN (Urea Nitrogen) 19 mg/dL (9.8-20.1); Calc. Creatinine Clearance 67 mL/min (70-130); Calcium 9.1 mg/dL (7.8-10.44); Carbon Dioxide 23 mmol/L (23-31); Chloride 107 mmol/L (98-107); Estimated GFR-MDRD 87; Glucose 115 mg/dL (80-115); Potassium 4.1 mmol/L (3.5-5.1); Sodium 140 mmol/L (136-145)
[2017-12-10 07:40] LABS: #Lymphocytes 0.4 thou/uL (1.20-3.40); #Monocytes 0.3 thou/uL (0.11-0.59); #Neutrophils 6.6 thou/uL (1.40-6.50); %Basophils 0.2 % (0.0-1.0); %Eosinophils 0.5 % (0.0-10.0); %Lymphocytes 5.1 % (21.0-51.0); %Monocytes 3.9 % (0.0-10.0); %Neutrophils 90.3 % (42.0-75.0); Mean Corpuscular Hemoglobin 31.5 pg (27.0-31.0); Mean Corpuscular Volume 92.7 fl (81.0-99.0); Mean Platelet Volume 7.1 fL (7.4-10.4); Platelet Count 295 thou/uL (130-400); RBC Distribution Width 14.4 % (11.5-14.5); Red Blood Cell (RBC) Count 3.19 mill/uL (4.20-5.40); White Blood Cell (WBC) Count 7.3 thou/uL (4.8-10.8)
[2017-12-10] MEDS: Lisinopril 10 MG TAB PO SCH (08:22)
[2017-12-10] MEDS: Metoprolol Tartrate 50 MG TAB PO SCH ×2 (08:22→20:46)
[2017-12-10] MEDS: Potassium Chloride 20 MEQ TAB PO SCH (08:22)
[2017-12-10] MEDS: Famotidine 20 MG TAB PO SCH ×2 (08:22→20:46)
[2017-12-10] MEDS: levETIRAcetam 500 MG TAB PO SCH ×2 (08:22→20:46)
[2017-12-10] MEDS: Ibuprofen 200 MG TAB PO PRN ×3 (08:22→20:47)
[2017-12-10] MEDS: Nitrofurantoin Monohyd/M-Cryst 100 MG CAP PO SCH ×2 (08:22→20:46)
[2017-12-10] MEDS: ALPRAZolam 0.5 MG TAB PO SCH ×2 (08:22→20:56)
[2017-12-10] MEDS: Verapamil 120 MG TAB PO SCH ×2 (08:23→20:46)
--- NOTE | 2017-12-10 10:01 | PDOC.PN ---
- Subjective Encounter Start Date: 12/10/17 Encounter Start Time: 07:10 Patient seen and examined. felt flushed face, hallucination . No overnight events today feels not good, she is unsteady again code status changed to DNR today - Objective Resuscitation Status: Resuscitation Status DNI:No Intubation MAR Reviewed: Yes Vital Signs & Weight: Vital Signs (12 hours) Temp Pulse Resp BP Pulse Ox 12/10/17 08:06 97.4 F L 54 L 16 152/67 H 98 12/10/17 05:33 97.8 F 60 20 153/67 H 97 12/10/17 00:20 95 12/10/17 00:00 97.7 F 61 16 119/56 L 94 L Weight Weight 120 lb I&O: 12/09/17 12/10/17 12/11/17 06:59 06:59 06:59 Output Total 250 Balance -250 Result Diagrams: 12/10/17 07:03 12/10/17 07:03 Additional Labs: Accuchecks 12/10/17 12/09/17 12/09/17 04:28 21:03 16:47 POC Glucose 140 H 133 H 120 H 12/09/17 11:21 POC Glucose 154 H EKG Reviewed by me: Yes (nsr) Phys Exam - Physical Examination Constitutional: NAD HEENT: PERRLA, moist MMs, sclera anicteric Neck: no nodes, no JVD, supple, full ROM Respiratory: no wheezing, no rales, no rhonchi Cardiovascular: RRR, no significant murmur, no rub Gastrointestinal: soft, non-tender, no distention, positive bowel sounds Musculoskeletal: no edema, pulses present Neurological: non-focal, normal sensation Lymphatic: no nodes Psychiatric: normal affect Skin: no rash, normal turgor Dx/Plan (1) Encephalopathy acute Code(s): G93.40 - ENCEPHALOPATHY, UNSPECIFIED Status: Resolved (2) H/O: CVA (cerebrovascular accident) Code(s): Z86.73 - PRSNL HX OF TIA (TIA), AND CEREB INFRC W/O RESID DEFICITS Status: Acute (3) 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 Code(s): C34.90 - MALIGNANT NEOPLASM OF UNSP PART OF UNSP BRONCHUS OR LUNG; C79.31 - SECONDARY MALIGNANT NEOPLASM OF BRAIN Status: Acute (4) Thrombosis of left internal jugular vein Code(s): I82.C12 - ACUTE EMBOLISM AND THROMBOSIS OF LEFT INTERNAL JUGULAR VEIN Status: Acute (5) Anemia, normocytic normochromic Code(s): D64.9 - ANEMIA, UNSPECIFIED Status: Chronic (6) Anxiety and depression Code(s): F41.9 - ANXIETY DISORDER, UNSPECIFIED; F32.9 - MAJOR DEPRESSIVE DISORDER, SINGLE EPISODE, UNSPECIFIED Status: Chronic (7) COPD (chronic obstructive pulmonary disease) Status: Chronic (8) Dyslipidemia Code(s): E78.5 - HYPERLIPIDEMIA, UNSPECIFIED Status: Chronic (9) GERD (gastroesophageal reflux disease) Code(s): K21.9 - GASTRO-ESOPHAGEAL REFLUX DISEASE WITHOUT ESOPHAGITIS Status: Chronic (10) HTN (hypertension) Code(s): I10 - ESSENTIAL (PRIMARY) HYPERTENSION Status: Chronic (11) Lung cancer Code(s): C34.90 - MALIGNANT NEOPLASM OF UNSP PART OF UNSP BRONCHUS OR LUNG Status: Chronic (12) Tobacco abuse Code(s): Z72.0 - TOBACCO USE Status: Chronic (13) Hypomagnesemia Code(s): E83.42 - HYPOMAGNESEMIA Status: Resolved (14) UTI (urinary tract infection) Status: Acute - Plan cont current plan of care, plan discussed w/ family, 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 * code status- DNR confirmed today Review of Systems - Review of Systems Eyes: negative: Pain, Vision Change, Conjunctivae Inflammation, Eyelid Inflammation, Redness, Other ENT: negative: Ear Pain, Ear Discharge, Nose Pain, Nose Discharge, Nose Congestion, Mouth Pain, Mouth Swelling, Throat Pain, Throat Swelling, Other Respiratory: negative: Cough, Dry, Shortness of Breath, Hemoptysis, SOB with Excertion, Pleuritic Pain, Sputum, Wheezing Cardiovascular: negative: chest pain, palpitations, orthopnea, paroxysmal nocturnal dyspnea, edema, light headedness, other Gastrointestinal: negative: Nausea, Vomiting, Abdominal Pain, Diarrhea, Constipation, Melena, Hematochezia, Other Genitourinary: negative: Dysuria, Frequency, Incontinence, Hematuria, Retention , Other Musculoskeletal: negative: Neck Pain, Shoulder Pain, Arm Pain, Back Pain, Hand Pain, Leg Pain, Foot Pain, Other Skin: negative: Rash, Lesions, Reynaldo, Bruising, Other - Medications/Allergies Allergies/Adverse Reactions: Allergies Allergy/AdvReac Type Severity Reaction Status Date / Time ceftriaxone [From Rocephin] Allergy Verified 06/05/17 17:01 hydralazine Allergy Verified 06/05/17 17:01 Medications: Current Medications Acetaminophen (Tylenol) 650 mg PO Q4H PRN PRN Reason: Headache/Fever or Pain Last Admin: 12/07/17 10:27 Dose: 650 mg Alprazolam (Xanax) 0.5 mg PO BID [facility] Last Admin: 12/10/17 08:22 Dose: 0.5 mg Aspirin (Aspirin Chewable) 81 mg PO DAILY [facility] Last Admin: 12/10/17 08:22 Dose: 81 mg Atorvastatin Calcium (Lipitor) 40 mg PO 2100 [facility] Last Admin: 12/09/17 22:18 Dose: 40 mg Dexamethasone (Decadron) 4 mg PO Q6HR [facility] Last Admin: 12/10/17 05:19 Dose: 4 mg Dextrose/Water (Dextrose 50%) 25 gm SLOW IVP PRN PRN PRN Reason: Hypoglycemia Famotidine (Pepcid) 20 mg PO BID [facility] Last Admin: 12/10/17 08:22 Dose: 20 mg Glucagon (Glucagon) 1 mg IM PRN PRN PRN Reason: Hypoglycemia Dextrose/Water (D5w) 1,000 mls @ 0 mls/hr IV .Q0M PRN; As Directed PRN Reason: Hypoglycemia Ibuprofen (Motrin) 400 mg PO Q6H PRN PRN Reason: Pain Last Admin: 12/10/17 08:22 Dose: 400 mg Insulin Human Lispro (Humalog) 0 units SC .MILD SLIDING SCALE PRN PRN Reason: Mild Correctional Scale Levetiracetam (Keppra) 500 mg PO BID [facility] Last Admin: 12/10/17 08:22 Dose: 500 mg Lisinopril (Zestril) 10 mg PO DAILY [facility] Last Admin: 12/10/17 08:22 Dose: 10 mg Metoprolol Tartrate (Lopressor) 50 mg PO BID [facility] Last Admin: 12/10/17 08:22 Dose: 50 mg Morphine Sulfate (Morphine) 2 mg SLOW IVP Q4H PRN PRN Reason: Moderate to Severe Pain (6-10) Last Admin: 12/08/17 20:49 Dose: 2 mg Nitrofurantoin Macrocrystals (Macrobid) 100 mg PO BID [facility] Last Admin: 12/10/17 08:22 Dose: 100 mg Potassium Chloride (K-Dur) 20 meq PO QAM-WM [facility] Last Admin: 12/10/17 08:22 Dose: 20 meq Sodium Chloride (Flush - Normal Saline) 10 ml IVF Q12HR [facility] Last Admin: 12/10/17 08:23 Dose: Not Given Sodium Chloride (Flush - Normal Saline) 10 ml IVF PRN PRN PRN Reason: Saline Flush Last Admin: 12/09/17 05:47 Dose: 10 ml Verapamil HCl (Calan) 120 mg PO BID [facility] Last Admin: 12/10/17 08:23 Dose: 120 mg
[2017-12-10] MEDS: Atorvastatin Calcium 40 MG TAB PO SCH (20:46)
[2017-12-11] MEDS: Dexamethasone 4 MG TAB PO SCH ×2 (00:19→06:01)
[2017-12-11 04:08] VITALS: TEMP 97.8
--- NOTE | 2017-12-11 07:31 | DIS ---
PRIMARY CARE PHYSICIAN: Dr. Alon Cid. DATE OF ADMISSION: 12/06/2017 DATE OF DISCHARGE: 12/11/2017 DISCHARGE DISPOSITION: Home with home hospice. PRIMARY DISCHARGE DIAGNOSES: 1. Primary malignant neoplasm of lung with brain metastasis. 2. Thrombosis of left internal jugular vein. 3. Urinary tract infection. 4. Acute encephalopathy due to problem #1. 5. Hypomagnesemia, replaced. SECONDARY DISCHARGE DIAGNOSES: Tobacco abuse disorder, lung cancer, hypertension, gastroesophageal r eflux disease, dyslipidemia, anxiety and depression, normocytic normochromic anemia, history of cereb rovascular accident. PRIMARY PROCEDURE/OPERATION: None. RADIOLOGICAL INVESTIGATION: Chest x-ray on admission showed mass-like opacity in the right upper lob e related with malignancy, elevation of right hemidiaphragm and volume loss right hemithorax. Ultras ound neck showed left internal jugular vein thrombosis. CT brain showed findings suspicious for meta stasis. MRI brain confirmed multiple brain metastases. SIGNIFICANT LABORATORY DATA: WBC 7.3, hemoglobin 10.0, platelet 295. INR 1.4. Sodium 140, potassiu m 4.1, BUN 19, creatinine 0.67, calcium 9.1. LFT normal. Cardiac enzymes negative. Magnesium corre cted to 1.9. Urinalysis suggestive of UTI. Urine culture grew E. coli. DISCHARGE MEDICATIONS: Tylenol No. 3 one or two tablets p.o. q.6 hourly p.r.n., Xanax 0.5 mg p.o. b. i.d., aspirin 81 mg p.o. daily, Lipitor 40 mg p.o. at bedtime, Decadron 4 mg p.o. b.i.d., Robitussin AC 10 mL p.o. q.6 hourly p.r.n., Keppra 500 mg p.o. b.i.d., metoprolol tartrate 50 mg p.o. b.i.d., Ma crobid 100 mg p.o. b.i.d. for 7 days, Protonix 40 mg p.o. daily, verapamil 120 mg p.o. b.i.d. Xarelt o is discontinued because of increase risk of bleeding from intracranial metastasis in view. CONTRAINDICATIONS: Anticoagulation is not given to this particular patient with the internal jugular vein thrombosis with atrial fibrillation history because patient is at very high risk for intracrani al hemorrhage and very bad outcome and that is why it is contraindicated. INPATIENT CONSULTANTS: Dr. Crispin Nath was saw this patient. Hannah Briscoe APRN, with the Oncology saw this patient. Kei Kong PA-C, with the Neurosurgery saw this patient. TEST RESULTS PENDING ON DISCHARGE: None. ALLERGIES: ROCEPHIN and HYDRALAZINE. DISCHARGE PLAN: Post hospital, the patient is planned for discharge to home with home hospice. Subs equently, the patient will follow up with primary care physician. HOSPITAL COURSE: A 72-year-old female, who was admitted by Dr. Jeffries, please see her H&P for furthe r details. The patient was brought to the ER because she was having unsteadiness, confusion. In the emergency room, the patient had a CT brain, which showed findings suggestive of intracranial metasta sis. Her chest x-ray showed right upper lobe lung mass and she has known history of lung cancer. At this time, she has diagnosis of lung cancer with new metastasis to brain. The patient also had ultr asound of the neck, which showed internal jugular vein thrombosis on the left side. This patient was already on chronic anticoagulation therapy, but now because of new diagnosis of intracranial metasta sis and suspected finding of hemorrhagic conversion of metastasis, that is why we discontinued chroni c anticoagulation on this particular patient. Her urinalysis was suggestive of UTI and that is why we send urine culture. During this admission, Anna Moctezuma saw this patient and he was not recommending any kind of neurosurgical treatment. We consu lted Oncology and Oncology consulted Radiation Oncology. There was no curative treatment, but only p alliative radiation was option, but patient and family member decided not to go for any kind of treat ment. At this point, we consulted hospice and patient was qualified for home hospice. During hospital course, we treated her with Decadron and Keppra for seizure prophylaxis. On discharg e, we changed to p.o. Decadron and Keppra. The patient also treated with a UTI with Cipro, but based on culture and sensitivity result, we changed to Macrobid. The patient cough will be controlled with Robitussin-AC and her pain will be controlled with Tylenol No. 3. We are planning to discharge her home with home hospice with arrangement. The patient is seen and examined at bedside today. The patient is medically stable. PHYSICAL EXAMINATION: VITAL SIGNS: Today, temperature 97.8, pulse 60, respiratory rate 18, saturation 96% on room air, blo od pressure 135/70, weight 120 pounds. GENERAL: The patient is currently alert, awake, no acute distress. LUNGS: Clear to auscultation without any obvious rhonchi or rales. CARDIAC: S1, S2 appears regular without any murmur. ABDOMEN: Soft and benign. EXTREMITIES: No edema. NEUROLOGIC: The patient does have unsteadiness, but otherwise no focal neurological deficit noted.
[2017-12-11 07:49] VITALS: BP 151/69
[2017-12-11] MEDS: Famotidine 20 MG TAB PO SCH (08:45)
[2017-12-11] MEDS: Nitrofurantoin Monohyd/M-Cryst 100 MG CAP PO SCH (08:45)
[2017-12-11] MEDS: ALPRAZolam 0.5 MG TAB PO SCH (08:45)
[2017-12-11] MEDS: Metoprolol Tartrate 50 MG TAB PO SCH (08:45)
[2017-12-11] MEDS: Potassium Chloride 20 MEQ TAB PO SCH (08:46)
[2017-12-11] MEDS: Lisinopril 10 MG TAB PO SCH (08:46)
[2017-12-11] MEDS: levETIRAcetam 500 MG TAB PO SCH (08:46)
[2017-12-11] MEDS: Verapamil 120 MG TAB PO SCH (08:47)
== END 2017-12-11 10:35 | disposition hospice, home (50) | DRG 54 ==
LOC: ERS 13:36 → 2SE 18:24
PROVIDERS: ADMIT Internal Medicine; ATTEND Internal Medicine
DX: C79.31 Secondary malignant neoplasm of brain (principal); G93.40 Encephalopathy, unspecified; I61.9 Nontraumatic intracerebral hemorrhage, unspecified; G93.6 Cerebral edema; I82.C12 Acute embolism and thrombosis of left internal jugular vein; C34.11 Malignant neoplasm of upper lobe, right bronchus or lung; N39.0 Urinary tract infection, site not specified; I69.351 Hemiplegia and hemiparesis following cerebral infarction affecting right dominant side; E83.42 Hypomagnesemia; J44.9 Chronic obstructive pulmonary disease, unspecified; B96.20 Unspecified Escherichia coli [E. coli] as the cause of diseases classified elsewhere; Z51.5 Encounter for palliative care; Z66 Do not resuscitate; D64.9 Anemia, unspecified; E78.5 Hyperlipidemia, unspecified; I10 Essential (primary) hypertension; K21.9 Gastro-esophageal reflux disease without esophagitis; F41.9 Anxiety disorder, unspecified; F32.9 Major depressive disorder, single episode, unspecified; I69.320 Aphasia following cerebral infarction; Z87.891 Personal history of nicotine dependence; Z92.3 Personal history of irradiation; Z92.21 Personal history of antineoplastic chemotherapy; Z88.1 Allergy status to other antibiotic agents; Z88.8 Allergy status to other drugs, medicaments and biological substances; Z79.01 Long term (current) use of anticoagulants; Z79.82 Long term (current) use of aspirin; Z79.899 Other long term (current) drug therapy
CPT/HCPCS: 36415; 36416; 70450; 70553; 71045; 80048; 80053; 81001; 82553; 83690; 83735; 83880; 84484; 85007; 85025; 85027; 85610; 85730; 87077; 87086; 87186; 93005; 93010; 94760; 96374; 96376; A4216; A9579; G8978-GP-CM; G8979-GP-CJ; J1100; J1644; J2270; J3475; J7050; J8540